=== PATIENT | female | born 1950 | race Hispanic/Latino ===

== ENCOUNTER 2017-12-04 10:43 | Inpatient (IN) | payer MEDICARE, BC ==
--- NOTE | 2017-12-04 11:38 | ED PDOC ---
Arrival/HPI - General Chief Complaint: Cough, Cold, Congestion Time Seen by Provider: 12/04/17 11:31 Historian: Patient - History of Present Illness Narrative History of Present Illness (Text): 12/04/17 11:36 A 67 year old female, whose past medical history includes COPD, asthma, HTN presents to the emergency department for further evaluation of a cough. The patient states that she has been experiencing this cough for the past 3 weeks. The patient states that sometimes she produces sputum with her cough. She notes that she has experienced voice change. The patient denies fevers, chills, headache, dizziness, abdominal pain, nausea, vomiting, diarrhea, back pain, neck pain, chest pain, shortness of breath, dyspnea on exertion, or any other complaint. Time/Duration: Other (3 weeks) Symptom Onset: Sudden Symptom Course: Unchanged Activities at Onset: Rest, Light Context: Home Past Medical History - Provider Review Nursing Documentation Reviewed: Yes - Cardiac Hx Cardiac Disorders: Yes Hx Hypertension: Yes - Pulmonary Hx Respiratory Disorders: Yes Hx Asthma: Yes Hx Chronic Obstructive Pulmonary Disease (COPD): Yes Hx Emphysema: Yes - Neurological Hx Neurological Disorder: No - HEENT Hx HEENT Disorder: No - Renal Hx Renal Disorder: No - Endocrine/Metabolic Hx Endocrine Disorders: No - Hematological/Oncological Hx Blood Disorders: Yes - Integumentary Hx Dermatological Disorder: No - Musculoskeletal/Rheumatological Hx Musculoskeletal Disorders: Yes - Gastrointestinal Hx Gastrointestinal Disorders: No - Genitourinary/Gynecological Hx Genitourinary Disorders: No - Psychiatric Hx Psychophysiologic Disorder: No Hx Substance Use: No - Surgical History Hx Hysterectomy: Yes - Suicidal Assessment Feels Threatened In Home Enviroment: No Family/Social History - Physician Review Nursing Documentation Reviewed: Yes Family/Social History: No Known Family HX Smoking Status: Former Smoker Hx Alcohol Use: No Hx Substance Use: No Allergies/Home Meds Allergies/Adverse Reactions: Allergies No Known Allergies Allergy (Verified 12/04/17 10:45) Home Medications: Home Meds Medication Instructions Recorded Confirmed Losartan/Hydrochlorothiazide 1 tab PO DAILY 01/24/12 12/04/17 [Hyzaar 25 mg-100 mg] Fluticasone/Salmeterol 250/50 1 puff IH Q12 05/06/16 12/04/17 [Advair Diskus] Tiotropium [place] [Spiriva 2.5 mcg IH DAILY 05/06/16 12/04/17 Respimat] Albuterol Sulfate [Ventolin Hfa] 2 puff NEB Q6 PRN 12/04/17 12/04/17 RX: Gabapentin [Neurontin] 600 mg PO TID 12/04/17 12/04/17 RX: Meloxicam [Mobic] 1 tab PO DAILY 12/04/17 12/04/17 oxyCODONE/Acetaminophen [Percocet 1 tab PO PRN PRN 12/04/17 12/04/17 5/325 mg Tab] Review of Systems - Physician Review All systems were reviewed & negative as marked: Yes - Review of Systems Constitutional: absent: Fevers ENT: Voice Changes Respiratory: Cough. absent: SOB Cardiovascular: absent: Chest Pain, MARTIN Gastrointestinal: absent: Abdominal Pain, Diarrhea, Nausea, Vomiting Musculoskeletal: absent: Back Pain, Neck Pain Neurological: absent: Headache, Dizziness Physical Exam - Physical Exam Narrative Physical Exam (Text): 12/04/17 11:40 Gen: VS reviewed, alert, well developed, well nourished, nontoxic, mild distress. ENT: Normal pharynx. Post nasal drip. Eye: EOMI, PERRL. Neck: No JVD, supple, no adenopathy. CV: Regular rate, regular rhythm, no rubs, no murmur, no gallops, S1, S2, pulses equal and strong. Pulm: No distress, clear to auscultation, no wheeze, no rhonchi, breath sounds equal, no rales. Abd: Soft, nontender, no guarding, no rebound, no rigidity, normal bowel sounds. Ext: No edema. Skin: Good color, no rash, no cyanosis. Psych: Responds appropriately to questions, normal affect. Neuro: Oriented x 3, CN2-12 intact grossly, motor intact, sensation intact. Vital Signs Reviewed: Yes Vital Signs Temp Pulse Resp Pulse Ox 12/04/17 10:47 98.9 F 127 H 23 94 L Temperature: Afebrile Blood Pressure: Hypotensive Pulse: Tachycardic Respiratory Rate: Normal Appearance: Positive for: Well-Appearing, Non-Toxic, Comfortable Pain Distress: None Mental Status: Positive for: Alert and Oriented X 3 Medical Decision Making ED Course and Treatment: 12/04/17 11:40 Impression: A 67 year old female presents to the emergency department with a complaint of 3 week duration cough and voice change. Plan: -- Chest X-Ray -- Labs -- Reassess and disposition Prior Visits: Notes and results from previous visits were reviewed. Progress Notes: 12/04/17 17:28 patient was seen for persistent cough, found to have a pneumonia and iv abx started in the ED. patient was incidentally found to be in atrial fibrillation which is new. heparin was ordered and initiated in the ED . patient remained stable throughout ED course and admitted to hospitalist service. - Lab Interpretations I have reviewed the lab results: Yes - RAD Interpretation Narrative RAD Interpretations (Text): 12/04/17 12:10 1110: atrial fibrillation at 134 bpm, nml qrs, nml axis, nonspecific t wave abn Radiology Orders: 12/04/17 11:32 CXR [CHEST TWO VIEWS (PA/LAT)] [RAD] Stat - Scribe Statement The provider has reviewed the documentation as recorded by the Scribe Yamilet Vera Provider Scribe Attestation: All medical record entries made by the Scribe were at my direction and personally dictated by me. I have reviewed the chart and agree that the record accurately reflects my personal performance of the history, physical exam, medical decision making, and the department course for this patient. I have also personally directed, reviewed, and agree with the discharge instructions and disposition Disposition/Present on Arrival - Present on Arrival Any Indicators Present on Arrival: No History of DVT/PE: No History of Uncontrolled Diabetes: No Urinary Catheter: No History of Decub. Ulcer: No History Surgical Site Infection Following: None - Disposition Have Diagnosis and Disposition been Completed?: Yes Diagnosis: Pneumonia Disposition Time: 13:46 Patient Problems: Current Active Problems Problem Status Onset Pneumonia Acute Condition: STABLE
[2017-12-04 12:07] LABS: BASO # 0.03 K/mm3 (0.0-2.0); BASO % 0.1 % (0.0-3.0); EOS # 0.1 (0.0-0.7); EOS % 0.3 % (1.5-5.0); GRAN # 21.16 (1.4-6.5); GRAN % 85.3 % (50.0-68.0); HEMOGLOBIN 11.3 g/dL (12.0-16.0); LYMPH # 2.4 (1.2-3.4); LYMPH % 9.6 % (22.0-35.0); MEAN CELL VOLUME 88.4 fl (80.0-105.0); MEAN CORPUSCULAR HEMOGLOBIN 29.8 pg (25.0-35.0); MEAN CORPUSCULAR HGB CONC 33.7 g/dl (31.0-37.0); MEAN PLATELET VOLUME 9.9 fl (7.0-11.0); MONO # 1.2 (0.1-0.6); MONO % 4.7 % (1.0-6.0); RBC 3.79 10^6/uL (3.5-6.1); RED CELL DISTRIBUTION WIDTH 12.8 % (11.5-14.5); WHITE BLOOD COUNT 24.8 10^3/ul (4.5-11.0)
[2017-12-04 12:12] LABS: VENOUS BLOOD GAS PO2 56 mm/Hg (30-55); VENOUS BLOOD PH 7.46 (7.32-7.43)
[2017-12-04 12:36] LABS: ALB/GLOB RATIO 0.9 (1.1-1.8); ALBUMIN 3.6 g/dL (3.0-4.8); CALCIUM 9.5 mg/dL (8.4-10.5)
--- NOTE | 2017-12-04 13:14 | RAD ---
Date of service: 12/04/2017 HISTORY: cough, pneumonia COMPARISON: 05/06/2016 TECHNIQUE: Chest PA and lateral FINDINGS: LUNGS: There is consolidation around the left hilum measuring 7.6 cm in diameter. This most likely represents pneumonia. However follow-up is recommended to rule out an underlying mass PLEURA: No significant pleural effusion identified. No pneumothorax apparent. CARDIOVASCULAR: Normal. OSSEOUS STRUCTURES: No significant abnormalities. VISUALIZED UPPER ABDOMEN: Normal. OTHER FINDINGS: None. IMPRESSION: There is consolidation around the left hilum measuring 7.6 cm in diameter. This most likely represents pneumonia. However follow-up is recommended to rule out an underlying mass
[2017-12-04] MEDS ORDERED: cefTRIAXone 1 gm 1 GM/100 ML BAG IVPB STA (13:23)
[2017-12-04] MEDS ORDERED: Azithromycin 500MG/NS 250ml 500 MG/250 ML BAG IVPB STA (13:23)
[2017-12-04] MEDS ORDERED: Sodium Chloride 0.9% 1,000 ML IV STA (13:32)
[2017-12-04] MEDS ORDERED: Heparin25000 units/250ml 1/2NS 25,000 UNITS/250 ML BAG IV PRN (13:40)
[2017-12-04] MEDS ORDERED: Oxycodone/Acetaminophen 5/325 mg Tab PO PRN (14:50)
[2017-12-04 14:56] LABS: INR 1.27; PROTHROMBIN TIME 14.6 SECONDS (9.4-12.5)
--- NOTE | 2017-12-04 14:57 | CP.PCM.HP ---
<Felecia Pedro - Last Filed: 12/04/17 14:49> History of Present Illness - History of Present Illness History of Present Illness: PGY-1 H & P for Dr. Mcneil's service CC: cough HPI: Patient is a 66 yo female with PMH of COPD, HTN, spinal stenosis, herniated disks s/p MILD procedure, bursitis in hips presents to hospital for evaluation of cough. Patient reports cough for past 3 weeks after a MILD procedure performed at [facility]. Patient reports that cough is constant in nature and is associated with clear productive phlegm at times. Patient reports decreased appetite, dizziness when rising, and overall weakness. Patient reports no fevers or chills during this period. Patient has not seen PMD in over a year. Patient denies sick contacts. Patient denies chest pain, sob, n/v, constipation or diarrhea, dysuria, and headaches. Patient's ambulation is limited due to her chronic back condition. PMH- COPD, HTN, spinal stenosis, herniated disks s/p MILD procedure, bursitis in hips PSH- Mild procedure (3 weeks ago) FH- Denies Meds- Oxycodone 2 tabs 5mg, Advair diskus, Spiriva, Losartan/HCTZ, Gabapentin, Meloxicam Alls- NKDA Social- Former smoker quit 30 years ago; Denies alcohol or drug use Code- Full PMD- [place] Present on Admission - Present on Admission Any Indicators Present on Admission: No Review of Systems - Review of Systems Review of Systems: 12 point ROS obtained and noted as in HPI Past Patient History - Past Social History Smoking Status: Former Smoker - CARDIAC Hx Cardiac Disorders: Yes Hx Hypertension: Yes - PULMONARY Hx Respiratory Disorders: Yes Hx Asthma: Yes Hx Chronic Obstructive Pulmonary Disease (COPD): Yes Hx Emphysema: Yes - NEUROLOGICAL Hx Neurological Disorder: No - HEENT Hx HEENT Problems: No - RENAL Hx Chronic Kidney Disease: No - ENDOCRINE/METABOLIC Hx Endocrine Disorders: No - HEMATOLOGICAL/ONCOLOGICAL Hx Blood Disorders: Yes - INTEGUMENTARY Hx Dermatological Problems: No - MUSCULOSKELETAL/RHEUMATOLOGICAL Hx Musculoskeletal Disorders: Yes - GASTROINTESTINAL Hx Gastrointestinal Disorders: No - GENITOURINARY/GYNECOLOGICAL Hx Genitourinary Disorders: No - PSYCHIATRIC Hx Psychophysiologic Disorder: No Hx Substance Use: No - SURGICAL HISTORY Hx Hysterectomy: Yes Meds Allergies/Adverse Reactions: Allergies Allergy/AdvReac Type Severity Reaction Status Date / Time No Known Allergies Allergy Verified 12/04/17 10:45 Physical Exam - Constitutional Appears: Non-toxic, No Acute Distress - Head Exam Head Exam: NORMAL INSPECTION, NORMOCEPHALIC - Eye Exam Eye Exam: EOMI, Normal appearance. absent: Nystagmus, Scleral icterus - ENT Exam ENT Exam: Mucous Membranes Moist - Respiratory Exam Respiratory Exam: Clear to Auscultation Bilateral, NORMAL BREATHING PATTERN. absent: Rales, Rhonchi, Wheezes - Cardiovascular Exam Cardiovascular Exam: Tachycardia, Irregular Rhythm, +S1, +S2. absent: REGULAR RHYTHM, Systolic Murmur - GI/Abdominal Exam GI & Abdominal Exam: Normal Bowel Sounds, Soft. absent: Distended, Firm, Tender ness - Extremities Exam Extremities exam: Positive for: normal inspection. Negative for: calf tenderness, pedal edema - Neurological Exam Neurological exam: Alert, Oriented x3 - Skin Skin Exam: Intact, Normal Color Results - Vital Signs Recent Vital Signs: Last Vital Signs Temp 98.1 F 12/04/17 13:32 Pulse 118 H 12/04/17 14:33 Resp 19 12/04/17 14:33 BP 100/46 L 12/04/17 14:33 Pulse Ox 96 12/04/17 14:33 - Labs Result Diagrams: 12/04/17 11:56 12/04/17 11:31 Labs: Laboratory Results - last 24 hr 12/04/17 12/04/17 12/04/17 11:31 11:56 11:56 WBC 24.8 H D RBC 3.79 Hgb 11.3 L Hct 33.5 L MCV 88.4 MCH 29.8 MCHC 33.7 RDW 12.8 Plt Count 424 MPV 9.9 Gran % 85.3 H Lymph % (Auto) 9.6 L [place] % (Auto) 4.7 Eos % (Auto) 0.3 L Baso % (Auto) 0.1 Gran # 21.16 H Lymph # (Auto) 2.4 [place] # (Auto) 1.2 H Eos # (Auto) 0.1 Baso # (Auto) 0.03 pO2 56 H VBG pH 7.46 H VBG pCO2 36.0 L VBG HCO3 25.6 VBG Total CO2 26.7 VBG O2 Sat (Calc) 91.7 H VBG Base Excess 2.0 VBG Potassium 2.9 L Glucose 151 H Lactate 2.8 H FiO2 21.0 Sodium 135 134.0 Potassium 3.0 L Chloride 97 L 99.0 Carbon Dioxide 23 Anion Gap 17 BUN 46 H Creatinine 1.9 H Est GFR ( Amer) 32 Est GFR (Non-Af Amer) 26 Random Glucose 150 H Calcium 9.5 Total Bilirubin 1.0 AST 26 ALT 20 Alkaline Phosphatase 77 NT-Pro-B Natriuret Pep 3100 H Total Protein 7.6 Albumin 3.6 Globulin 3.9 Albumin/Globulin Ratio 0.9 L Venous Blood Potassium 2.9 L Influenza Typ A,B (EIA) 12/04/17 12:35 WBC RBC Hgb Hct MCV MCH MCHC RDW Plt Count MPV Gran % Lymph % (Auto) [place] % (Auto) Eos % (Auto) Baso % (Auto) Gran # Lymph # (Auto) [place] # (Auto) Eos # (Auto) Baso # (Auto) pO2 VBG pH VBG pCO2 VBG HCO3 VBG Total CO2 VBG O2 Sat (Calc) VBG Base Excess VBG Potassium Glucose Lactate FiO2 Sodium Potassium Chloride Carbon Dioxide Anion Gap BUN Creatinine Est GFR ( Amer) Est GFR (Non-Af Amer) Random Glucose Calcium Total Bilirubin AST ALT Alkaline Phosphatase NT-Pro-B Natriuret Pep Total Protein Albumin Globulin Albumin/Globulin Ratio Venous Blood Potassium Influenza Typ A,B (EIA) Negative for flu a/b Assessment & Plan - Assessment and Plan (Free Text) Assessment: Patient is a 66 yo female with PMH of COPD, HTN, spinal stenosis, herniated disks s/p MILD procedure, bursitis in hips presents to hospital for evaluation of cough. CXR shows PNA with possible lung mass; EKG showed Afib with RVR no prior heart disease history; Treated with azith/ceft in ED; ID, pulm, Cardio consulted Plan: Sepsis Likely 2/2 to PNA ID consulted- Dr. Moreno- recs appreciated Pulm consulted- Dr. Patrick- recs appreciated 12-04-17 Cxray shows consolidation around left hilum. possible lung mass Procal pending; PNA studies pending ED gave ceft/azith; Switched to Cefepime 1g & Vanc 1g (started 12-04) Repeat Lactate pending Chest CT pending NS 1L bolus Afib w/ RVR Infection vs Heart Disease Cardio Consult- Dr. Youngblood- reccomendations appreciated Lopressor 5mg q6 PRN (HR>115) Heparin drip Echo pending; TSH pending MARLON Held home combo med Losartan/HCTZ Held home med meloxicam Repeat CBC/CMP in AM NS bolus Hx of COPD Xopenex 0.63mg po IH q4h resp Elevated BNP Pt euvolemic; No JVD noted; no pitting edema; no crackles noted Will continue to monitor Chronic back pain 2/2 Spinal stenosis and herniated discks and bursitis Gabapentin 600mg tid Oxycodone 2 tab po PRN PPx GI ppx- Protonix 40mg po DVT ppx- Heparin drip Regular Diet Medical Management discussed with Dr. Tarun Pedro PGY-1 <Gabriel Mcneil - Last Filed: 12/04/17 17:24> Results - Vital Signs Recent Vital Signs: Last Vital Signs Temp 98.1 F 12/04/17 15:29 Pulse 114 H 12/04/17 15:29 Resp 18 12/04/17 16:43 BP 105/68 12/04/17 15:29 Pulse Ox 99 12/04/17 15:29 - Labs Result Diagrams: 12/04/17 11:56 12/04/17 11:31 Labs: Laboratory Results - last 24 hr 12/04/17 12/04/17 12/04/17 11:31 11:56 11:56 WBC 24.8 H D RBC 3.79 Hgb 11.3 L Hct 33.5 L MCV 88.4 MCH 29.8 MCHC 33.7 RDW 12.8 Plt Count 424 MPV 9.9 Gran % 85.3 H Lymph % (Auto) 9.6 L [place] % (Auto) 4.7 Eos % (Auto) 0.3 L Baso % (Auto) 0.1 Gran # 21.16 H Lymph # (Auto) 2.4 [place] # (Auto) 1.2 H Eos # (Auto) 0.1 Baso # (Auto) 0.03 PT INR APTT pO2 56 H VBG pH 7.46 H VBG pCO2 36.0 L VBG HCO3 25.6 VBG Total CO2 26.7 VBG O2 Sat (Calc) 91.7 H VBG Base Excess 2.0 VBG Potassium 2.9 L Glucose 151 H Lactate 2.8 H FiO2 21.0 Sodium 135 134.0 Potassium 3.0 L Chloride 97 L 99.0 Carbon Dioxide 23 Anion Gap 17 BUN 46 H Creatinine 1.9 H Est GFR ( Amer) 32 Est GFR (Non-Af Amer) 26 Random Glucose 150 H Lactic Acid Calcium 9.5 Total Bilirubin 1.0 AST 26 ALT 20 Alkaline Phosphatase 77 NT-Pro-B Natriuret Pep 3100 H Total Protein 7.6 Albumin 3.6 Globulin 3.9 Albumin/Globulin Ratio 0.9 L TSH 3rd Generation Venous Blood Potassium 2.9 L Influenza Typ A,B (EIA) 12/04/17 12/04/17 12/04/17 12:35 14:43 15:00 WBC RBC Hgb Hct MCV MCH MCHC RDW Plt Count MPV Gran % Lymph % (Auto) [place] % (Auto) Eos % (Auto) Baso % (Auto) Gran # Lymph # (Auto) [place] # (Auto) Eos # (Auto) Baso # (Auto) PT 14.6 H INR 1.27 APTT 27.0 pO2 VBG pH VBG pCO2 VBG HCO3 VBG Total CO2 VBG O2 Sat (Calc) VBG Base Excess VBG Potassium Glucose Lactate FiO2 Sodium Potassium Chloride Carbon Dioxide Anion Gap BUN Creatinine Est GFR ( Amer) Est GFR (Non-Af Amer) Random Glucose Lactic Acid Calcium Total Bilirubin AST ALT Alkaline Phosphatase NT-Pro-B Natriuret Pep Total Protein Albumin Globulin Albumin/Globulin Ratio TSH 3rd Generation 1.10 Venous Blood Potassium Influenza Typ A,B (EIA) Negative for flu a/b 12/04/17 12/04/17 15:53 15:53 WBC RBC Hgb Hct MCV MCH MCHC RDW Plt Count MPV Gran % Lymph % (Auto) [place] % (Auto) Eos % (Auto) Baso % (Auto) Gran # Lymph # (Auto) [place] # (Auto) Eos # (Auto) Baso # (Auto) PT INR APTT pO2 43 VBG pH 7.41 VBG pCO2 43.0 VBG HCO3 27.3 VBG Total CO2 28.6 H VBG O2 Sat (Calc) 79.5 H VBG Base Excess 2.2 H VBG Potassium 2.8 L Glucose 158 H Lactate 1.4 FiO2 21.0 Sodium 135.0 Potassium Chloride 102.0 Carbon Dioxide Anion Gap BUN Creatinine Est GFR ( Amer) Est GFR (Non-Af Amer) Random Glucose Lactic Acid 1.1 Calcium Total Bilirubin AST ALT Alkaline Phosphatase NT-Pro-B Natriuret Pep Total Protein Albumin Globulin Albumin/Globulin Ratio TSH 3rd Generation Venous Blood Potassium 2.8 L Influenza Typ A,B (EIA) Attending/Attestation - Attestation I have personally seen and examined this patient.: Yes I have fully participated in the care of the patient.: Yes I have reviewed all pertinent clinical information: Yes Notes (Text): 12/04/17 17:19 Medical record note made by the resident after discussion with my direction and input after the patient was personally seen and examined by me. I have reviewed the chart and agree that the record accurately reflects by personal performance of the history, physical exam, data review, and medical decision-making, in the course for the patient. I have also personally directed the plan of care. 87 yrs old female with PMH of chronic Back pain, Obesity,COPD,HTN is admitted with sepsis due to Left lung Pneumonia, has POSSIBLE underlying lung mass , new onset AF with RVR, and MARLON creatinin increased to 1.9 from 1.0, Sepsis due to Pneumonia.Agreed swith IV Vancomycin and Cefepime.Lactic acid is high , patient is getting fluid bolus, we will follow up lactic acid level. We will also get CT chest for further evaluation. AF with RVT, HR is around 115, will start PRN Metoprolol, continue IV heparin for AF .We will also get 2D Echo and cardiology consult. BNP is high but patient is not CHF clinically, we will monitor, we will get 2D Echo. Management plan was discussed in detail with patient. Education was provided.
[2017-12-04] MEDS ORDERED: Vancomycin 1gm in NS 250ml 1 GM/250 ML BAG IVPB SCH (15:00)
[2017-12-04] MEDS: Heparin25000 units/250ml 1/2NS 25,000 UNITS/250 ML BAG IV PRN (15:51)
[2017-12-04 16:10] LABS: VENOUS BLOOD GAS BASE EXCESS 2.2 mmol/L (0.0-2.0); VENOUS BLOOD GAS PO2 43 mm/Hg (30-55); VENOUS BLOOD PH 7.41 (7.32-7.43)
--- NOTE | 2017-12-04 16:21 | CARD ---
APPROVED REPORT Date of service: 12/04/2017 EKG Measurement Heart [id number] <Conclusion> Atrial fibrillation with rapid ventricular response Nonspecific ST and T wave abnormality, probably digitalis effect Abnormal ECG
[2017-12-04 16:46] VITALS: BMI 42.9
[2017-12-04] MEDS: Pantoprazole 40 mg EC Tab PO SCH (17:57)
[2017-12-04] MEDS ORDERED: Potassium Chloride 20 mEq ER Tab PO STA (19:31)
[2017-12-04] MEDS: Ipratropium 0.02% Inhal Soln (0.5 mg/2.5 ml) UD IH SCH (19:42)
[2017-12-04] MEDS: guaiFENesin 100 mg/5 ml Syrup UD PO PRN (20:51)
[2017-12-05] MEDS: Ipratropium 0.02% Inhal Soln (0.5 mg/2.5 ml) UD IH SCH ×6 (00:06→20:35)
[2017-12-05] MEDS: Cefepime 1gm in NS 100ml 1 GM/100 ML BAG IVPB SCH ×3 (01:52→15:15)
[2017-12-05] MEDS: Heparin25000 units/250ml 1/2NS 25,000 UNITS/250 ML BAG IV PRN (02:57)
[2017-12-05] MEDS: Linezolid 600 mg in D5W 300 ml 600 MG/300 ML BAG IVPB SCH ×2 (02:58→22:11)
[2017-12-05 04:29] LABS: BASO # 0.01 K/mm3 (0.0-2.0); BASO % 0.1 % (0.0-3.0); EOS # 0.1 (0.0-0.7); EOS % 0.8 % (1.5-5.0); GRAN # 12.73 (1.4-6.5); GRAN % 75.8 % (50.0-68.0); LYMPH # 3.1 (1.2-3.4); LYMPH % 18.3 % (22.0-35.0); MEAN CELL VOLUME 87.8 fl (80.0-105.0); MEAN CORPUSCULAR HEMOGLOBIN 29.7 pg (25.0-35.0); MEAN CORPUSCULAR HGB CONC 33.8 g/dl (31.0-37.0); MEAN PLATELET VOLUME 9.5 fl (7.0-11.0); MONO # 0.8 (0.1-0.6); RBC 3.37 10^6/uL (3.5-6.1); RED CELL DISTRIBUTION WIDTH 12.9 % (11.5-14.5); WHITE BLOOD COUNT 16.8 10^3/ul (4.5-11.0)
[2017-12-05] MEDS: Levalbuterol 0.63 MG/3 ML Inhal Soln UD IH PRN ×3 (04:38→15:18)
[2017-12-05 04:52] LABS: ALB/GLOB RATIO 0.9 (1.1-1.8); ALBUMIN 2.9 g/dL (3.0-4.8); CALCIUM 8.5 mg/dL (8.4-10.5)
[2017-12-05] MEDS: guaiFENesin 100 mg/5 ml Syrup UD PO PRN (05:38)
--- NOTE | 2017-12-05 09:05 | CP.PCM.PN ---
Subjective - Date & Time of Evaluation Date of Evaluation: 12/05/17 Time of Evaluation: 10:20 - Subjective Subjective: PGY-1 Medicine Progress Note for Dr. Fernandez's service Patient seen and examined at bedside. Patient offers no acute complaints except for cough at times. Patient denies fevers, chills, chest pain, sob, n/v, constipation or diarrhea, headaches. Objective - Vital Signs/Intake and Output Vital Signs (last 24 hours): Temp Pulse Resp BP Pulse Ox 98.6 F 129 H 21 99/56 L 95 12/05/17 06:00 12/05/17 06:00 12/05/17 06:00 12/05/17 06:00 12/05/17 06:00 Intake and Output: 12/05/17 12/05/17 06:59 18:59 Intake Total 1440 Balance 1440 - Medications Medications: Current Medications Gabapentin (Neurontin) 600 mg PO Q8 CAR; Protocol Last Admin: 12/05/17 05:38 Dose: 600 mg Guaifenesin (Robitussin) 100 mg PO Q4H PRN PRN Reason: cough Last Admin: 12/05/17 05:38 Dose: 100 mg Heparin Sodium/Sodium Chloride (Heparin 68478 Units/250ml 1/2 Normal Saline) 25,000 units in 250 mls @ 21.767 mls/hr IV .[id number] PRN; Protocol PRN Reason: ADJUST RATE PER PROTOCOL Last Admin: 12/05/17 02:57 Dose: 18 units/kg/hr, 21.767 mls/hr Azithromycin (Zithromax 500mg In Ns) 500 mg in 250 mls @ 167 mls/hr IVPB DAILY CAR; Protocol Linezolid (Zyvox 600mg/300ml D5w) 600 mg in 300 mls @ 200 mls/hr IVPB Q12 CAR; Protocol Stop: 12/11/17 22:46 Last Admin: 12/05/17 02:58 Dose: 200 mls/hr Cefepime HCl (Maxipime 1gm) 1 gm in 100 mls @ 100 mls/hr IVPB Q12H CAR; Protocol Ipratropium [place] (Atrovent) 0.5 mg IH [id number] CAR Last Admin: 12/05/17 08:02 Dose: 0.5 mg Levalbuterol HCl (Xopenex) 0.63 mg IH [id number] PRN PRN Reason: Shortness of Breath Last Admin: 12/05/17 08:02 Dose: 0.63 mg Metoprolol Tartrate (Lopressor) 25 mg PO 0800,1800 PRN PRN Reason: HR>115 Last Admin: 12/05/17 00:04 Dose: 25 mg Oxycodone/Acetaminophen (Percocet 5/325 Mg Tab) 2 tab PO Q6H PRN PRN Reason: Pain, Mild (1-3) Stop: 12/07/17 14:51 Pantoprazole Sodium (Protonix Ec Tab) 40 mg PO DAILY CAR Last Admin: 12/04/17 17:57 Dose: 40 mg - Labs Labs: 12/05/17 04:05 12/05/17 04:05 PT 14.6 SECONDS (9.4-12.5) H 12/04/17 14:43 INR 1.27 12/04/17 14:43 APTT 60.7 Seconds (25.1-36.5) H 12/05/17 04:05 - Additional Findings Additional findings: - Constitutional Appears: Non-toxic, No Acute Distress - Head Exam Head Exam: NORMAL INSPECTION, NORMOCEPHALIC - Eye Exam Eye Exam: EOMI, Normal appearance. absent: Nystagmus, Scleral icterus - ENT Exam ENT Exam: Mucous Membranes Moist - Respiratory Exam Respiratory Exam: Clear to Auscultation Bilateral, NORMAL BREATHING PATTERN. absent: Rales, Rhonchi, Wheezes - Cardiovascular Exam Cardiovascular Exam: Tachycardia, Irregular Rhythm, +S1, +S2. absent: REGULAR RHYTHM, Systolic Murmur - GI/Abdominal Exam GI & Abdominal Exam: Normal Bowel Sounds, Soft. absent: Distended, Firm, Tenderness - Extremities Exam Extremities exam: Positive for: normal inspection. Negative for: calf tenderness, pedal edema - Neurological Exam Neurological exam: Alert, Oriented x3 - Skin Skin Exam: Intact, Normal Color Assessment and Plan - Assessment and Plan (Free Text) Assessment: Patient is a 66 yo female with PMH of COPD, HTN, spinal stenosis, herniated disks s/p MILD procedure, bursitis in hips presents to hospital for evaluation of cough. CXR shows PNA with possible lung mass; EKG showed Afib with RVR no prior heart disease history; Treated with azith/ceft in ED; ID, pulm, Cardio consulted. Chest CT shows findings consistent with PNA Plan: Sepsis Likely 2/2 to PNA ID consulted- Dr. Moreno- recommendations as below Pulm consulted- Dr. Lucia- recommendations as below 12-04-17 Cxray shows consolidation around left hilum 12-05-[address] shows consolidation consistent with PNA Procal pending 0.37; PNA studies pending ED gave ceft/azith; Switched to Cefepime, Azithromycin, Zyvox Afib w/ RVR Infection vs Heart Disease Cardio Consult- Dr. Youngblood- reccomendations appreciated Lopressor 5mg q6 PRN (HR>115) Igor-Vasc: 3; Patient needs to be on AC for increased clot risk; Heparin drip dc'ed; Switched to Xarelto 20mg daily Echo pending TSH normal MARLON Held home combo med Losartan/HCTZ Held home med meloxicam Repeat CBC/CMP in AM Hx of COPD Xopenex 0.63mg po IH q4h resp Elevated BNP Pt euvolemic; No JVD noted; no pitting edema; no crackles noted Will continue to monitor Chronic back pain 2/2 Spinal stenosis and herniated discks and bursitis Gabapentin 600mg tid Oxycodone 2 tab po PRN PPx GI ppx- Protonix 40mg po DVT ppx- Heparin drip Regular Diet Medical Management discussed with Dr. Tarun Pedro PGY-1
--- NOTE | 2017-12-05 09:13 | CP.PCM.CON ---
<Stacey Andres - Last Filed: 12/05/17 13:14> History of Present Illness - History of Present Illness History of Present Illness: PGY-3 ID resident consult note for Dr. Mccoy Reason for consult: Pneumonia Patient is a 67 y/o with PMHx of COPD, htn, spinal stenosis s/p MILD procedure, herniated disc, bursitis of the hip, morbidly obese ( BMI 44) presenting with 3 weeks of cough. The cough is intermittently productive, pt doesn't know the color of the sputum. Pt came in because the cough was getting worst, though it was her allergies, however no improvement with her inhalers. Denies runny nose or itchy eyes. Denies fever or chills. No nausea, vomiting or diarrhea. No dysurea. Patient was noted to have sepsis with pneumonia as the possible source, thus ID was consulted for management. PMHx: COPD, htn, spinal stenosis s/p MILD procedure 3 weeks ago, herniated disc, bursitis of the hip, morbidly obese ( BMI 44) PSHx: hysterectomy 40 years ago FMHx: non contributory Social: former tobacco, quit 30 years ago, denies alcohol and illicit drug use. Allergy: NKDA Home Meds: Review of Systems - Constitutional Constitutional: absent: Chills, Fatigue, Fever, Headache, Night Sweats, Weight Loss - EENT Eyes: absent: Blurred Vision, Change in Vision Ears: absent: Disequilibrium, Dizziness Nose/Mouth/Throat: absent: Sinus Pain, Sore Throat - Cardiovascular Cardiovascular: absent: Chest Pain, Chest Pain at Rest, Dyspnea - Respiratory Respiratory: Cough, Wheezing. absent: Dyspnea, Chest Congestion, Excessive Mucous Production, Pain with Coughing - Gastrointestinal Gastrointestinal: absent: Abdominal Pain, Nausea, Vomiting - Genitourinary Genitourinary: absent: Dysuria - Musculoskeletal Musculoskeletal: absent: Arthralgias - Integumentary Integumentary: absent: Rash - Neurological Neurological: absent: Dizziness Past Patient History - Infectious Disease Hx of Infectious Diseases: None - Past Social History Smoking Status: Former Smoker Alcohol: None Drugs: Denies Home Situation {Lives}: With Family - CARDIAC Hx Cardiac Disorders: Yes Hx Hypertension: Yes - PULMONARY Hx Respiratory Disorders: Yes Hx Asthma: Yes Hx Chronic Obstructive Pulmonary Disease (COPD): Yes Hx Emphysema: Yes - NEUROLOGICAL Hx Neurological Disorder: No - HEENT Hx HEENT Problems: No - RENAL Hx Chronic Kidney Disease: No - ENDOCRINE/METABOLIC Hx Endocrine Disorders: No - HEMATOLOGICAL/ONCOLOGICAL Hx Blood Disorders: Yes - INTEGUMENTARY Hx Dermatological Problems: No - MUSCULOSKELETAL/RHEUMATOLOGICAL Hx Musculoskeletal Disorders: Yes - GASTROINTESTINAL Hx Gastrointestinal Disorders: No - GENITOURINARY/GYNECOLOGICAL Hx Genitourinary Disorders: No - PSYCHIATRIC Hx Psychophysiologic Disorder: No Hx Substance Use: No - SURGICAL HISTORY Hx Hysterectomy: Yes Meds Allergies/Adverse Reactions: Allergies Allergy/AdvReac Type Severity Reaction Status Date / Time No Known Allergies Allergy Verified 12/04/17 10:45 - Medications Medications: Current Medications Gabapentin (Neurontin) 600 mg PO Q8 CAR; Protocol Last Admin: 12/05/17 05:38 Dose: 600 mg Guaifenesin (Robitussin) 100 mg PO Q4H PRN PRN Reason: cough Last Admin: 12/05/17 05:38 Dose: 100 mg Heparin Sodium/Sodium Chloride (Heparin 28740 Units/250ml 1/2 Normal Saline) 25,000 units in 250 mls @ 21.767 mls/hr IV .[id number] PRN; Protocol PRN Reason: ADJUST RATE PER PROTOCOL Last Admin: 12/05/17 02:57 Dose: 18 units/kg/hr, 21.767 mls/hr Azithromycin (Zithromax 500mg In Ns) 500 mg in 250 mls @ 167 mls/hr IVPB DAILY [facility]; Protocol Linezolid (Zyvox 600mg/300ml D5w) 600 mg in 300 mls @ 200 mls/hr IVPB Q12 CAR; Protocol Stop: 12/11/17 22:46 Last Admin: 12/05/17 02:58 Dose: 200 mls/hr Cefepime HCl (Maxipime 1gm) 1 gm in 100 mls @ 100 mls/hr IVPB Q12H CAR; Protocol Ipratropium [place] (Atrovent) 0.5 mg IH [id number] CAR Last Admin: 12/05/17 08:02 Dose: 0.5 mg Levalbuterol HCl (Xopenex) 0.63 mg IH [id number] PRN PRN Reason: Shortness of Breath Last Admin: 12/05/17 08:02 Dose: 0.63 mg Metoprolol Tartrate (Lopressor) 25 mg PO 0800,1800 PRN PRN Reason: HR>115 Last Admin: 12/05/17 00:04 Dose: 25 mg Oxycodone/Acetaminophen (Percocet 5/325 Mg Tab) 2 tab PO Q6H PRN PRN Reason: Pain, Mild (1-3) Stop: 12/07/17 14:51 Pantoprazole Sodium (Protonix Ec Tab) 40 mg PO DAILY CAR Last Admin: 12/04/17 17:57 Dose: 40 mg Physical Exam - Constitutional Appears: No Acute Distress - Head Exam Head Exam: ATRAUMATIC, NORMAL INSPECTION, NORMOCEPHALIC - Eye Exam Eye Exam: Normal appearance - ENT Exam ENT Exam: Mucous Membranes Moist - Neck Exam Neck exam: Positive for: Normal Inspection. Negative for: Lymphadenopathy, Meningismus, Tenderness - Respiratory Exam Respiratory Exam: Wheezes (left upper lobe). absent: Rales, Rhonchi, Respiratory Distress, Stridor - Cardiovascular Exam Cardiovascular Exam: Irregular Rhythm, RRR, +S1, +S2 - GI/Abdominal Exam GI & Abdominal Exam: Normal Bowel Sounds, Soft. absent: Distended, Firm, Guarding, Hernia, Rigid, Tenderness Additional comments: obese abdomen - Extremities Exam Extremities exam: Positive for: normal inspection - Neurological Exam Neurological exam: Alert, Oriented x3 - Psychiatric Exam Psychiatric exam: Normal Affect, Normal Mood - Skin Skin Exam: Dry, Intact, Warm Results - Vital Signs Recent Vital Signs: Last Vital Signs Temp 98.6 F 12/05/17 06:00 Pulse 129 H 12/05/17 06:00 Resp 21 12/05/17 06:00 BP 99/56 L 12/05/17 06:00 Pulse Ox 95 12/05/17 06:00 - Labs Result Diagrams: 12/05/17 04:05 12/05/17 04:05 Labs: Laboratory Results - last 24 hr 12/04/17 12/04/17 12/04/17 11:31 11:56 11:56 WBC 24.8 H D RBC 3.79 Hgb 11.3 L Hct 33.5 L MCV 88.4 MCH 29.8 MCHC 33.7 RDW 12.8 Plt Count 424 MPV 9.9 Gran % 85.3 H Lymph % (Auto) 9.6 L Avery % (Auto) 4.7 Eos % (Auto) 0.3 L Baso % (Auto) 0.1 Gran # 21.16 H Lymph # (Auto) 2.4 Avery # (Auto) 1.2 H Eos # (Auto) 0.1 Baso # (Auto) 0.03 PT INR APTT pO2 56 H VBG pH 7.46 H VBG pCO2 36.0 L VBG HCO3 25.6 VBG Total CO2 26.7 VBG O2 Sat (Calc) 91.7 H VBG Base Excess 2.0 VBG Potassium 2.9 L Glucose 151 H Lactate 2.8 H FiO2 21.0 Sodium 135 134.0 Potassium 3.0 L Chloride 97 L 99.0 Carbon Dioxide 23 Anion Gap 17 BUN 46 H Creatinine 1.9 H Est GFR ( Amer) 32 Est GFR (Non-Af Amer) 26 Random Glucose 150 H Lactic Acid Calcium 9.5 Total Bilirubin 1.0 AST 26 ALT 20 Alkaline Phosphatase 77 NT-Pro-B Natriuret Pep 3100 H Total Protein 7.6 Albumin 3.6 Globulin 3.9 Albumin/Globulin Ratio 0.9 L Procalcitonin TSH 3rd Generation Venous Blood Potassium 2.9 L Influenza Typ A,B (EIA) 12/04/17 12/04/17 12/04/17 12:35 14:43 15:00 WBC RBC Hgb Hct MCV MCH MCHC RDW Plt Count MPV Gran % Lymph % (Auto) Avery % (Auto) Eos % (Auto) Baso % (Auto) Gran # Lymph # (Auto) Avery # (Auto) Eos # (Auto) Baso # (Auto) PT 14.6 H INR 1.27 APTT 27.0 pO2 VBG pH VBG pCO2 VBG HCO3 VBG Total CO2 VBG O2 Sat (Calc) VBG Base Excess VBG Potassium Glucose Lactate FiO2 Sodium Potassium Chloride Carbon Dioxide Anion Gap BUN Creatinine Est GFR ( Amer) Est GFR (Non-Af Amer) Random Glucose Lactic Acid Calcium Total Bilirubin AST ALT Alkaline Phosphatase NT-Pro-B Natriuret Pep Total Protein Albumin Globulin Albumin/Globulin Ratio Procalcitonin TSH 3rd Generation 1.10 Venous Blood Potassium Influenza Typ A,B (EIA) Negative for flu a/b 12/04/17 12/04/17 12/04/17 15:53 15:53 17:25 WBC RBC Hgb Hct MCV MCH MCHC RDW Plt Count MPV Gran % Lymph % (Auto) Avery % (Auto) Eos % (Auto) Baso % (Auto) Gran # Lymph # (Auto) Avery # (Auto) Eos # (Auto) Baso # (Auto) PT INR APTT pO2 43 VBG pH 7.41 VBG pCO2 43.0 VBG HCO3 27.3 VBG Total CO2 28.6 H VBG O2 Sat (Calc) 79.5 H VBG Base Excess 2.2 H VBG Potassium 2.8 L Glucose 158 H Lactate 1.4 FiO2 21.0 Sodium 135.0 Potassium Chloride 102.0 Carbon Dioxide Anion Gap BUN Creatinine Est GFR ( Amer) Est GFR (Non-Af Amer) Random Glucose Lactic Acid 1.1 Calcium Total Bilirubin AST ALT Alkaline Phosphatase NT-Pro-B Natriuret Pep Total Protein Albumin Globulin Albumin/Globulin Ratio Procalcitonin 0.37 TSH 3rd Generation Venous Blood Potassium 2.8 L Influenza Typ A,B (EIA) 12/04/17 12/05/17 12/05/17 22:30 04:05 04:05 WBC 16.8 H D RBC 3.37 L Hgb 10.0 L Hct 29.6 L MCV 87.8 MCH 29.7 MCHC 33.8 RDW 12.9 Plt Count 292 MPV 9.5 Gran % 75.8 H Lymph % (Auto) 18.3 L Avery % (Auto) 5.0 Eos % (Auto) 0.8 L Baso % (Auto) 0.1 Gran # 12.73 H Lymph # (Auto) 3.1 Avery # (Auto) 0.8 H Eos # (Auto) 0.1 Baso # (Auto) 0.01 PT INR APTT 60.2 H pO2 VBG pH VBG pCO2 VBG HCO3 VBG Total CO2 VBG O2 Sat (Calc) VBG Base Excess VBG Potassium Glucose Lactate FiO2 Sodium 133 Potassium 3.8 Chloride 100 Carbon Dioxide 25 Anion Gap 11 BUN 51 H Creatinine 1.8 H Est GFR ( Amer) 34 Est GFR (Non-Af Amer) 28 Random Glucose 158 H Lactic Acid Calcium 8.5 Total Bilirubin 0.6 AST 39 H D ALT 33 Alkaline Phosphatase 86 NT-Pro-B Natriuret Pep Total Protein 6.1 Albumin 2.9 L Globulin 3.1 Albumin/Globulin Ratio 0.9 L Procalcitonin TSH 3rd Generation Venous Blood Potassium Influenza Typ A,B (EIA) 12/05/17 04:05 WBC RBC Hgb Hct MCV MCH MCHC RDW Plt Count MPV Gran % Lymph % (Auto) Avery % (Auto) Eos % (Auto) Baso % (Auto) Gran # Lymph # (Auto) Avery # (Auto) Eos # (Auto) Baso # (Auto) PT INR APTT 60.7 H pO2 VBG pH VBG pCO2 VBG HCO3 VBG Total CO2 VBG O2 Sat (Calc) VBG Base Excess VBG Potassium Glucose Lactate FiO2 Sodium Potassium Chloride Carbon Dioxide Anion Gap BUN Creatinine Est GFR ( Amer) Est GFR (Non-Af Amer) Random Glucose Lactic Acid Calcium Total Bilirubin AST ALT Alkaline Phosphatase NT-Pro-B Natriuret Pep Total Protein Albumin Globulin Albumin/Globulin Ratio Procalcitonin TSH 3rd Generation Venous Blood Potassium Influenza Typ A,B (EIA) Assessment & Plan - Assessment and Plan (Free Text) Assessment: Patient is a 67 y/o admitted with Sepsis with HAP as the possible source CT chest with dense consolidation in the anterior left upper lobe consistent with pneumonia and area of consolidation in the left lung base. Likely aspiration pna, less likely TB due to location RVR afib R/o COPD exacerbation versus CHF exacerbation MARLON COPD, htn spinal stenosis s/p MILD procedure, herniated disc, bursitis of the hip, morbidly obese (BMI 44) Hyperglycemia Plan: Afebrile, with tachycardia and leukocytosis on presentation, lactic acid was 2.8, chest x-ray with consolidation around hilum, Procal of 0.37. CT chest finding as stated above. Influenza negative, strep pneumonia, urine legionella o rdered. Patient started on cefepime, Zithromax and zyvox to cover HAP, will consider deescalating the antibiotics pending cultures. Pulm consulted to evaluate the dense consolidations. On heparin drip for RVR afib. Echo pending Will add hemoglobin A1C for hyperglycemia. Continue with medical management as per primary and batch unit treater. Patient seen, examined and case discussed with Dr. Mccoy. - Date & Time Date: 12/05/17 Time: 13:10 <Marcell Mccoy - Last Filed: 12/05/17 22:13> Meds - Medications Medications: Current Medications Gabapentin (Neurontin) 600 mg PO Q8 CAR; Protocol Last Admin: 12/05/17 15:15 Dose: 600 mg Guaifenesin (Robitussin) 100 mg PO Q4H PRN PRN Reason: cough Last Admin: 12/05/17 05:38 Dose: 100 mg Azithromycin (Zithromax 500mg In Ns) 500 mg in 250 mls @ 167 mls/hr IVPB DAILY CAR; Protocol Last Admin: 12/05/17 10:08 Dose: 167 mls/hr Linezolid (Zyvox 600mg/300ml D5w) 600 mg in 300 mls @ 200 mls/hr IVPB Q12 CAR; Protocol Stop: 12/11/17 22:46 Last Admin: 12/05/17 02:58 Dose: 200 mls/hr Cefepime HCl (Maxipime 1gm) 1 gm in 100 mls @ 100 mls/hr IVPB Q12H CAR; Protocol Last Admin: 12/05/17 15:15 Dose: 100 mls/hr Ipratropium [place] (Atrovent) 0.5 mg IH [id number] CAR Last Admin: 12/05/17 20:35 Dose: 0.5 mg Levalbuterol HCl (Xopenex) 0.63 mg IH [id number] PRN PRN Reason: Shortness of Breath Last Admin: 12/05/17 15:18 Dose: 0.63 mg Metoprolol Tartrate (Lopressor) 25 mg PO 0800,1800 PRN PRN Reason: HR>115 Last Admin: 12/05/17 00:04 Dose: 25 mg Oxycodone/Acetaminophen (Percocet 5/325 Mg Tab) 2 tab PO Q6H PRN PRN Reason: Pain, Mild (1-3) Stop: 12/07/17 14:51 Pantoprazole Sodium (Protonix Ec Tab) 40 mg PO DAILY CAR Last Admin: 12/05/17 10:08 Dose: 40 mg Rivaroxaban (Xarelto) 15 mg PO DAILY [facility]; Protocol Results - Vital Signs Recent Vital Signs: Last Vital Signs Temp 98 F 12/05/17 17:44 Pulse 98 H 12/05/17 22:00 Resp 19 12/05/17 17:44 BP 86/48 L 12/05/17 17:44 Pulse Ox 95 12/05/17 06:00 - Labs Result Diagrams: 12/05/17 04:05 12/05/17 04:05 Labs: Laboratory Results - last 24 hr 12/04/17 12/05/17 12/05/17 22:30 04:05 04:05 WBC 16.8 H D RBC 3.37 L Hgb 10.0 L Hct 29.6 L MCV 87.8 MCH 29.7 MCHC 33.8 RDW 12.9 Plt Count 292 MPV 9.5 Gran % 75.8 H Lymph % (Auto) 18.3 L Avery % (Auto) 5.0 Eos % (Auto) 0.8 L Baso % (Auto) 0.1 Gran # 12.73 H Lymph # (Auto) 3.1 Avery # (Auto) 0.8 H Eos # (Auto) 0.1 Baso # (Auto) 0.01 APTT 60.2 H Sodium 133 Potassium 3.8 Chloride 100 Carbon Dioxide 25 Anion Gap 11 BUN 51 H Creatinine 1.8 H Est GFR ( Amer) 34 Est GFR (Non-Af Amer) 28 Random Glucose 158 H Hemoglobin A1c Calcium 8.5 Total Bilirubin 0.6 AST 39 H D ALT 33 Alkaline Phosphatase 86 Troponin I Total Protein 6.1 Albumin 2.9 L Globulin 3.1 Albumin/Globulin Ratio 0.9 L 12/05/17 12/05/17 12/05/17 04:05 05:00 10:00 WBC RBC Hgb Hct MCV MCH MCHC RDW Plt Count MPV Gran % Lymph % (Auto) Avery % (Auto) Eos % (Auto) Baso % (Auto) Gran # Lymph # (Auto) Avery # (Auto) Eos # (Auto) Baso # (Auto) APTT 60.7 H Sodium Potassium Chloride Carbon Dioxide Anion Gap BUN Creatinine Est GFR ( Amer) Est GFR (Non-Af Amer) Random Glucose Hemoglobin A1c 6.2 Calcium Total Bilirubin AST ALT Alkaline Phosphatase Troponin I 0.05 Total Protein Albumin Globulin Albumin/Globulin Ratio Assessment & Plan - Assessment and Plan (Free Text) Plan: Infectious Diseases Attending Physician Attestation Patient seen and examined, discussed with site medical director. I have the pertinent clinical findings, history of present illness, medical histories, physical exam and pertinent labs and imaging. I agree with the above findings, assessment and plan. In addition, we have started the patient on Zyvox, Cefepime and Zithromax for probable sepsis due to HAP. Follow up blood cx, sputum cx, PCT, urine Legionella Ag and will monitor clinically.
--- NOTE | 2017-12-05 09:52 | CON ---
DATE: 12/05/2017 INDICATIONS: Shortness of breath, cough, pneumonia, rapid AFib. HISTORY OF PRESENT ILLNESS: This is a 67-year-old woman admitted to [facility] yesterday when she complained of increasing cough for several weeks with shortness of breath, sputum production. She was seen in the Emergency Room and found to have atrial fibrillation with rapid ventricular response. Her chest x-ray showed an infiltrate in the midlung on the left. She was admitted to telemetry. This morning, she feels better. There is no shortness of breath at rest. There is no chest pain, orthopnea, PND, syncope, presyncope, lightheadedness, dizziness, vertigo, edema, or claudication. No fever, rigor, sweats, hemoptysis. No abdominal pain, nausea, vomiting, diarrhea, constipation, or melena. PAST MEDICAL HISTORY: Notable for COPD, hypertension, spinal stenosis, herniated disks with surgery. She is a former remote smoker. Her creatinine is elevated at 1.8. I am not sure if this is chronic. She is anemic. She has had back surgery. There is a diagnosis of bursitis of the hips. MEDICATIONS: At the time of admission, her medications included oxycodone, Advair, Spiriva, losartan HCT, gabapentin, meloxicam. ALLERGIES: THERE ARE NO MEDICATION ALLERGIES. SOCIAL HISTORY: She lives at home. She is a remote smoker who quit 30 years ago. She does not drink alcohol significantly. She is ambulatory but limited. FAMILY HISTORY: Noncontributory. REVIEW OF SYSTEMS: A 10-point review of systems otherwise unremarkable except as noted above. PHYSICAL EXAMINATION: GENERAL: She is a well-developed woman, in no acute distress, lying in bed on telemetry. VITAL SIGNS: She is in atrial fib at 107-129 beats per minute. She is afebrile. Blood pressure 115/62, respirations 19-20, O2 sat 95%-96% on nasal cannula. HEENT: Reveals no neck vein distention, thyromegaly, carotid bruits. Mucous membranes moist. Conjunctiva pink. NECK: Supple. LUNGS: Lung beavers, few rhonchi on the left side. No rales, no wheezing. HEART: Revealed an irregular rhythm, which was somewhat rapid. I did not appreciate murmur, gallop, rub, or click. PMI not palpable. ABDOMEN: Obese, soft, benign. Bowel sounds present. No mass, organomegaly, tenderness, rebound, guarding, CVA tenderness, palpable abdominal aortic aneurysm. EXTREMITIES: Revealed no cyanosis, clubbing, or edema. NEUROLOGIC: She is awake, alert, and oriented. SKIN: Warm and dry. No rash or cellulitis. LABORATORY DATA AND IMAGING: The chest x-ray reveals consolidation around the left hilum, probably pneumonia, etc. EKG demonstrated atrial fib with rapid ventricular response, ST-T wave changes. Electrolytes initially notable for potassium of 3, today 3.8; BUN 46; creatinine 1.9, today 1.8. LFTs mildly abnormal. BNP 3100. TSH 1.1. Procalcitonin 0.37. PT/INR, PTT unremarkable. Repeat PTT is therapeutic on heparin. Blood gases are noted. White count initially 24,800, repeat 16,800, hemoglobin 10, hematocrit 29.6, platelet count normal. IMPRESSION: Monica Perales is a 67-year-old woman, former smoker with chronic obstructive pulmonary disease who presents with several weeks of increasing shortness of breath and cough, found to have pneumonia apparent on the chest x-ray with atrial fibrillation with rapid ventricular response, which is new, also chronic kidney disease and anemia are noted with leukocytosis and hypokalemia initially. At this time, she is on telemetry. She is getting IV heparin and metoprolol p.o. for rate control. A CT scan of the chest is ordered. Blood cultures are ordered. She is getting antibiotics. An echocardiogram is ordered. She could be out of bed to a chair. I will order stool for occult blood. We will monitor I's and O's and daily lab work. We will titrate the medications to achieve rate control. We will discuss anticoagulation. In the meantime, she is on IV heparin. Once stabilized, a nuclear stress test should be considered, probably on an outpatient basis. I will follow along with you. I will order troponins for completeness. I will make additional recommendations based on her clinical course. Ovidio Herring MD [facility]
[2017-12-05] MEDS: Pantoprazole 40 mg EC Tab PO SCH (10:08)
[2017-12-05] MEDS: Azithromycin 500MG/NS 250ml 500 MG/250 ML BAG IVPB SCH (10:08)
--- NOTE | 2017-12-05 11:05 | CT ---
Date of service: 12/05/2017 PROCEDURE: CT Chest without contrast HISTORY: PNA and possible lung mass COMPARISON: None available. TECHNIQUE: Contiguous axial images were obtained through the chest without intravenous contrast enhancement. Sagittal and coronal reconstructions were performed. Radiation dose (DLP): 1158 mGy-cm. This CT exam was performed using one or more of the following dose reduction techniques: Automated exposure control, adjustment of the mA and/or kV according to patient size, and/or use of iterative reconstruction technique. FINDINGS: LUNGS: There is dense consolidation in the anterior left upper lobe consistent with pneumonia. There is also volume loss. There is a 2nd area of consolidation at the left lung base. MEDIASTINUM: Unremarkable thoracic aorta. No aneurysm. Normal sized heart. Main pulmonary artery unremarkable. No vascular congestion. No lymphadenopathy. PLEURA: No pleural fluid. No pneumothorax. BONES: No fracture. No destructive lesion. UPPER ABDOMEN: Small hiatal hernia OTHER FINDINGS: None. IMPRESSION: There is dense consolidation in the anterior left upper lobe consistent with pneumonia. There is also volume loss. There is a 2nd area of consolidation at the left lung base.
[2017-12-05] MEDS ORDERED: Metoprolol 1 mg/ml Inj IVP ONE (14:43)
[2017-12-06] MEDS: Cefepime 1gm in NS 100ml 1 GM/100 ML BAG IVPB SCH ×2 (01:00→16:33)
[2017-12-06] MEDS: Ipratropium 0.02% Inhal Soln (0.5 mg/2.5 ml) UD IH SCH ×6 (01:58→20:15)
[2017-12-06 04:14] LABS: BASO # 0.01 K/mm3 (0.0-2.0); BASO % 0.1 % (0.0-3.0); EOS # 0.2 (0.0-0.7); EOS % 1.2 % (1.5-5.0); GRAN # 9.59 (1.4-6.5); GRAN % 77.6 % (50.0-68.0); HEMOGLOBIN 9.4 g/dL (12.0-16.0); LYMPH # 1.9 (1.2-3.4); LYMPH % 15.5 % (22.0-35.0); MEAN CELL VOLUME 87.9 fl (80.0-105.0); MEAN CORPUSCULAR HEMOGLOBIN 29.8 pg (25.0-35.0); MEAN CORPUSCULAR HGB CONC 33.9 g/dl (31.0-37.0); MEAN PLATELET VOLUME 9.2 fl (7.0-11.0); MONO # 0.7 (0.1-0.6); MONO % 5.6 % (1.0-6.0); RBC 3.15 10^6/uL (3.5-6.1); RED CELL DISTRIBUTION WIDTH 12.9 % (11.5-14.5); WHITE BLOOD COUNT 12.4 10^3/ul (4.5-11.0)
[2017-12-06 04:36] LABS: TROPONIN I 0.02 ng/mL
[2017-12-06 04:51] LABS: ALBUMIN 3.1 g/dL (3.0-4.8); CALCIUM 8.9 mg/dL (8.4-10.5)
[2017-12-06 07:51] LABS: PH,URINE 5.5 (4.7-8.0); URINE BILIRUBIN NEGATIVE (NEGATIVE); URINE BLOOD NEGATIVE (NEGATIVE); URINE GLUCOSE (UA) NEGATIVE (NEGATIVE); URINE LEUKOCYTE ESTERASE TRACE Leu/uL (NEGATIVE); URINE PROTEIN NEGATIVE mg/dL (<30 mg/dL); URINE UROBILINOGEN 0.2 E.U./dL (<1 E.U./dL)
[2017-12-06] MEDS: Budesonide 0.5 mg/2 ml Inhal Susp UD IH SCH ×2 (07:55→20:15)
[2017-12-06 08:07] LABS: URINE APPEARANCE CLEAR (CLEAR); URINE COLOR YELLOW (YELLOW)
[2017-12-06 08:10] LABS: URINE BACTERIA MOD (NEG); URINE RBC 0 - 2 /hpf (0-2)
--- NOTE | 2017-12-06 08:25 | CP.PCM.PN ---
Subjective - Date & Time of Evaluation Date of Evaluation: 12/06/17 Time of Evaluation: 07:00 - Subjective Subjective: Stable on 2R. She feels better. Still some cough. V/S noted. RSR this AM. 108/52 currently. Low BPs at times. PE: Lungs: rhonchi Cor.: S1S2 Abd.: soft Ext.: no edema Neuro.: alert I/O= 1500/1950 Labs: 12,400, PTT 24.9, Cr.+ 1.5, trop = 0.02 BC X2 NG at 24 hrs. Echo done: Nl LV. See report. Objective - Vital Signs/Intake and Output Vital Signs (last 24 hours): Temp Pulse Resp BP Pulse Ox 97.6 F 98 H 18 108/52 L 97 12/06/17 05:53 12/06/17 05:53 12/06/17 05:53 12/06/17 05:53 12/06/17 05:53 Intake and Output: 12/06/17 12/06/17 06:59 18:59 Intake Total 840 Output Total 800 Balance 40 - Medications Medications: Current Medications Budesonide (Pulmicort Respules) 0.5 mg IH [id number] CAR Last Admin: 12/06/17 07:55 Dose: 0.5 mg Gabapentin (Neurontin) 600 mg PO Q8 CAR; Protocol Last Admin: 12/06/17 05:05 Dose: 600 mg Guaifenesin (Robitussin) 100 mg PO Q4H PRN PRN Reason: cough Last Admin: 12/05/17 05:38 Dose: 100 mg Azithromycin (Zithromax 500mg In Ns) 500 mg in 250 mls @ 167 mls/hr IVPB DAILY [facility]; Protocol Last Admin: 12/05/17 10:08 Dose: 167 mls/hr Linezolid (Zyvox 600mg/300ml D5w) 600 mg in 300 mls @ 200 mls/hr IVPB Q12 [facility]; Protocol Stop: 12/11/17 22:46 Last Admin: 12/05/17 22:11 Dose: 200 mls/hr Cefepime HCl (Maxipime 1gm) 1 gm in 100 mls @ 100 mls/hr IVPB Q12H [facility]; Protocol Last Admin: 12/06/17 01:00 Dose: 100 mls/hr Ipratropium [place] (Atrovent) 0.5 mg IH [id number] CAR Last Admin: 12/06/17 07:55 Dose: 0.5 mg Levalbuterol HCl (Xopenex) 0.63 mg IH [id number] PRN PRN Reason: Shortness of Breath Last Admin: 12/05/17 15:18 Dose: 0.63 mg Metoprolol Tartrate (Lopressor) 25 mg PO 0800,1800 PRN PRN Reason: HR>115 Last Admin: 12/05/17 00:04 Dose: 25 mg Oxycodone/Acetaminophen (Percocet 5/325 Mg Tab) 2 tab PO Q6H PRN PRN Reason: Pain, Mild (1-3) Stop: 12/07/17 14:51 Pantoprazole Sodium (Protonix Ec Tab) 40 mg PO DAILY [facility] Last Admin: 12/05/17 10:08 Dose: 40 mg Rivaroxaban (Xarelto) 15 mg PO DAILY [facility]; Protocol - Labs Labs: 12/06/17 04:07 12/06/17 04:07 PT 14.6 SECONDS (9.4-12.5) H 12/04/17 14:43 INR 1.27 12/04/17 14:43 APTT 24.9 Seconds (25.1-36.5) L 12/06/17 04:07 Assessment and Plan - Assessment and Plan (Free Text) Assessment: SOB, Cough, Pneumonia PAF with RVR, CHADs = 3 COPD HBP Acute renal insufficiency Anemia Obesity Spinal stenosis with H/O back Surgery and chronic pain. Former Smoker Plan: Metoprolol Xarelto AB OOB as angelo. Out-pt nuclear stress test to be arranged As per ID, Pulm., Medical Team
--- NOTE | 2017-12-06 08:53 | CP.PCM.PN ---
Subjective - Date & Time of Evaluation Date of Evaluation: 12/06/17 Time of Evaluation: 10:10 - Subjective Subjective: PGY-1 Medicine Progress Note for Dr. Sims's service Patient seen and examined at bedside. Patient reports ongoing cough, productive at times, and raspy voice 2/2 to cough. Patient denies fevers, chills, chest pain, sob, n/v, constipation or diarrhea, dysuria. Objective - Vital Signs/Intake and Output Vital Signs (last 24 hours): Temp Pulse Resp BP Pulse Ox 97.6 F 98 H 18 108/52 L 97 12/06/17 05:53 12/06/17 05:53 12/06/17 05:53 12/06/17 05:53 12/06/17 05:53 Intake and Output: 12/06/17 12/06/17 06:59 18:59 Intake Total 840 Output Total 800 Balance 40 - Medications Medications: Current Medications Budesonide (Pulmicort Respules) 0.5 mg IH [id number] CAR Last Admin: 12/06/17 07:55 Dose: 0.5 mg Gabapentin (Neurontin) 600 mg PO Q8 CAR; Protocol Last Admin: 12/06/17 05:05 Dose: 600 mg Guaifenesin (Robitussin) 100 mg PO Q4H PRN PRN Reason: cough Last Admin: 12/05/17 05:38 Dose: 100 mg Azithromycin (Zithromax 500mg In Ns) 500 mg in 250 mls @ 167 mls/hr IVPB DAILY CAR; Protocol Last Admin: 12/05/17 10:08 Dose: 167 mls/hr Linezolid (Zyvox 600mg/300ml D5w) 600 mg in 300 mls @ 200 mls/hr IVPB Q12 CAR; Protocol Stop: 12/11/17 22:46 Last Admin: 12/05/17 22:11 Dose: 200 mls/hr Cefepime HCl (Maxipime 1gm) 1 gm in 100 mls @ 100 mls/hr IVPB Q12H CAR; Protocol Last Admin: 12/06/17 01:00 Dose: 100 mls/hr Ipratropium [place] (Atrovent) 0.5 mg IH [id number] CAR Last Admin: 12/06/17 07:55 Dose: 0.5 mg Levalbuterol HCl (Xopenex) 0.63 mg IH [id number] PRN PRN Reason: Shortness of Breath Last Admin: 12/05/17 15:18 Dose: 0.63 mg Metoprolol Tartrate (Lopressor) 25 mg PO 0800,1800 PRN PRN Reason: HR>115 Last Admin: 12/05/17 00:04 Dose: 25 mg Oxycodone/Acetaminophen (Percocet 5/325 Mg Tab) 2 tab PO Q6H PRN PRN Reason: Pain, Mild (1-3) Stop: 12/07/17 14:51 Pantoprazole Sodium (Protonix Ec Tab) 40 mg PO DAILY CAR Last Admin: 12/05/17 10:08 Dose: 40 mg Rivaroxaban (Xarelto) 15 mg PO DAILY [facility]; Protocol - Labs Labs: 12/06/17 04:07 12/06/17 04:07 PT 14.6 SECONDS (9.4-12.5) H 12/04/17 14:43 INR 1.27 12/04/17 14:43 APTT 24.9 Seconds (25.1-36.5) L 12/06/17 04:07 - Additional Findings Additional findings: - Constitutional Appears: Non-toxic, No Acute Distress - Head Exam Head Exam: NORMAL INSPECTION, NORMOCEPHALIC - Eye Exam Eye Exam: EOMI, Normal appearance. absent: Nystagmus, Scleral icterus - ENT Exam ENT Exam: Mucous Membranes Moist - Respiratory Exam Respiratory Exam: Clear to Auscultation Bilateral, NORMAL BREATHING PATTERN. absent: Rales, Rhonchi, Wheezes - Cardiovascular Exam Cardiovascular Exam: Tachycardia, Irregular Rhythm, +S1, +S2. absent: REGULAR RHYTHM, Systolic Murmur - GI/Abdominal Exam GI & Abdominal Exam: Normal Bowel Sounds, Soft. absent: Distended, Firm, Tenderness - Extremities Exam Extremities exam: Positive for: normal inspection. Negative for: calf tenderness, pedal edema - Neurological Exam Neurological exam: Alert, Oriented x3 - Skin Skin Exam: Intact, Normal Color Assessment and Plan - Assessment and Plan (Free Text) Assessment: Patient is a 66 yo female with PMH of COPD, HTN, spinal stenosis, herniated dis ks s/p MILD procedure, bursitis in hips presents to hospital for evaluation of cough. CXR shows PNA with possible lung mass; EKG showed Afib with RVR no prior heart disease history; Treated with azith/ceft in ED; ID, pulm, Cardio consulted. Chest CT shows findings consistent with PNA; Continuing patient on Azithromycin, Linezolid, Cefepime Plan: Sepsis Likely 2/2 to PNA ID consulted- Dr. Moreno- recommendations as below Pulm consulted- Dr. Lucia- recommendations as below 12-04-17 Cxray shows consolidation around left hilum 12-05-[address] shows consolidation consistent with PNA Procal pending 0.37; PNA studies pending ED gave ceft/azith; Switched to Cefepime, Azithromycin, Zyvox Afib w/ RVR Infection vs Heart Disease Cardio Consult- Dr. Youngblood- reccomendations appreciated Lopressor 5mg q6 PRN (HR>115) Igor-Vasc: 3; Patient needs to be on AC for increased clot risk; Xarelto 20mg daily Echo- 68% TSH normal MARLON Held home combo med Losartan/HCTZ Held home med meloxicam 1x NS @ 80mls/hr Repeat CBC/CMP in AM Hx of COPD Xopenex 0.63mg po IH q4h resp Elevated BNP Pt euvolemic; No JVD noted; no pitting edema; no crackles noted Will continue to monitor Chronic back pain 2/2 Spinal stenosis and herniated discks and bursitis Gabapentin 600mg tid Oxycodone 2 tab po PRN PPx GI ppx- Protonix 40mg po DVT ppx- Xarelto Dispo: Continue IV abx 1 more day and reassess as per ID Medical Management discussed with Dr. Tarun Pedro PGY-1
--- NOTE | 2017-12-06 09:32 | CON ---
DATE: 12/06/2017 PULMONARY CONSULTATION DICTATION REFERRING PHYSICIAN: Dr. Mcneil REASON FOR PULMONARY CONSULTATION: Pneumonia. HISTORY OF PRESENT ILLNESS: The patient is a 67-year-old female, with past medical history significant for chronic obstructive pulmonary disease, hypertension, spinal stenosis, who presents to [facility] with a 2-week history of increasing shortness of breath at rest, dyspnea on exertion, cough, and sputum production. There is no history of chest pain, coughing up of blood, or chest pain - made worse with deep respirations. There is no history of temperatures, chills or infectious exposure. There is no history of night sweats, weight loss or appetite change prior to the above events. No history of leg or calf pains. No history of syncope or diaphoresis. No history of recent travel or trauma. REVIEW OF SYSTEMS: No history of nausea, vomiting or diarrhea. No acute urinary symptoms. No new neurologic or musculoskeletal complaints. Rest of the review of systems is negative. ALLERGIES: NO KNOWN ALLERGIES. SOCIAL HISTORY: Positive for tobacco and negative for alcohol. FAMILY HISTORY: No inheritable diseases. HOME MEDICATIONS: Include Mobic, Neurontin, Ventolin, Hyzaar, Advair and Spiriva. PHYSICAL EXAMINATION: GENERAL: The patient appears comfortable this morning. She is not short of breath at rest. VITAL SIGNS: Temperature is 97.6, pulse 98, respirations 18, blood pressure 108/52. Oxygen saturation on nasal cannula is 97%. HEENT: Normocephalic, atraumatic. No JVD. CARDIOVASCULAR: Positive S1, S2. No S3 gallop. LUNGS: Decreased breath sounds at the bases. Minimal bilateral rhonchi. No wheezing. EXTREMITIES: Mild edema. No cyanosis, no clubbing. Calves are nontender to palpation. GI: Abdomen is soft, nontender and nondistended. Bowel sounds are positive. SKIN: No acute rash. NEUROLOGIC: Exam limited at the present time. PERTINENT LABORATORY DATA: Pertinent laboratory data: CAT scan of the chest was done yesterday and reviewed. There is a dense consolidation in the left apex, with some air bronchograms - consistent with pneumonia. There is also a small consolidation at the left base. There is no lymphadenopathy. CBC: White count 12.4K, hemoglobin 9.4, hematocrit 27.7, platelets of 285,000. Initial white count 24.8K. Complete metabolic profile: BUN 42, creatinine 1.5, glucose 125. Rest of the metabolic profile is within normal limits. Initial EKG done in the emergency room - consistent with rapid atrial fibrillation. IMPRESSION: 1. Left upper lobe, left lower lobe pneumonia. 2. Acute bronchitis. 3. Chronic obstructive pulmonary disease. 4. Atrial fibrillation. 5. Mild anemia. PLAN: The patient presents to [facility] with a 2-week history of worsening pulmonary symptoms. The patient did have a CAT scan of the chest done yesterday. Results are noted above. The CAT scan is most consistent with bilobar pneumonia at this point in time. However, I did state to the patient that she will need a repeat CAT scan - down the line - as an outpatient for comparison. She fully agrees. Input by Infectious Disease is noted. I would continue with the current antibiotic therapy for now. The leukocytosis is resolving. On physical exam, there is only minimal bronchospasm noted. In addition, there is no significant alveolar-arterial gradient. Oxygen saturation on nasal cannula is 97%. The patient is currently on Atrovent nebulizer treatments. I will add inhaled Pulmicort this morning. The patient is on Advair at home. The patient does state to feeling significantly better - since her hospital admission. Additional pulmonary intervention will be based on the clinical status of the patient. I will discuss the above with the attending physician this morning. Thank you very much for this pulmonary consultation. Nando Soler MD [facility]
--- NOTE | 2017-12-06 09:52 | CARD ---
APPROVED REPORT Date of service: 12/05/2017 EXAM: Two-dimensional and M-mode echocardiogram with Doppler and color Doppler. Other Information Quality : FairRhythm : INDICATION Atrial Fibrillation 2D DIMENSIONS Left Atrium (2D)4.3 (1.6-4.0cm)IVSd1.3 (0.7-1.1cm) LVDd4.1 (3.9-5.9cm)PWd1.3 (0.7-1.1cm) LVDs2.5 (2.5-4.0cm)FS (%) 37.8 % LVEF (%)68.0 (>50%) M-Mode DIMENSIONS Aortic Root3.10 (2.2-3.7cm)Aortic Cusp Exc.1.60 (1.5-2.0cm) Aortic Valve AoV Peak Lmvprrrl286.0cm/s Mitral Valve E/A ratio0.0 TDI E/Lateral E'0.0E/Medial E'0.0 Tricuspid Valve TR Peak [id number] [id number] Peak Gr.23mmHg [id number] LEFT VENTRICLE The left ventricle is normal size. There is mild concentric left ventricular hypertrophy. The left ventricular function is normal. The left ventricular ejection fraction is within the normal range. There is normal LV segmental wall motion. RIGHT VENTRICLE The right ventricle is normal size. ATRIA The left atrium is mildly dilated. The right atrium size is normal. The interatrial septum is intact with no evidence for an atrial septal defect. AORTIC VALVE The aortic valve is mildly calcified. MITRAL VALVE The mitral valve is normal in structure. Mitral regurgitation is mild. TRICUSPID VALVE The tricuspid valve is not well visualized. There is trace to mild tricuspid regurgitation. PULMONIC VALVE The pulmonic valve is not well visualized. GREAT VESSELS The aortic root is normal in size. PERICARDIAL EFFUSION There is no pericardial effusion. <Conclusion> Limited Study. The left ventricle is normal size. There is mild concentric left ventricular hypertrophy. The left ventricular function is normal. The aortic valve is mildly calcified. Aortic sclerosis. Mitral regurgitation is mild. There is trace to mild tricuspid regurgitation.
[2017-12-06] MEDS: Azithromycin 500MG/NS 250ml 500 MG/250 ML BAG IVPB SCH (10:17)
[2017-12-06] MEDS: Pantoprazole 40 mg EC Tab PO SCH (10:17)
[2017-12-06] MEDS: Linezolid 600 mg in D5W 300 ml 600 MG/300 ML BAG IVPB SCH ×2 (10:18→21:16)
--- NOTE | 2017-12-06 13:08 | CP.PCM.PN ---
<Stacey Andres - Last Filed: 12/06/17 13:09> Subjective - Date & Time of Evaluation Date of Evaluation: 12/06/17 Time of Evaluation: 08:00 - Subjective Subjective: PGY-3 Id resident progress note for Dr. Mccoy Patient states she's feeling much better. The cough has improved, and she's able to walk to the restroom. No fever. No n/v or diarrhea. Had episodes of hypotension overnight, however BP is stable at this time. Objective - Vital Signs/Intake and Output Vital Signs (last 24 hours): Temp Pulse Resp BP Pulse Ox 98.6 F 101 H 18 98/53 L 97 12/06/17 12:00 12/06/17 12:00 12/06/17 12:00 12/06/17 12:00 12/06/17 05:53 Intake and Output: 12/06/17 12/06/17 06:59 18:59 Intake Total 840 Output Total 800 Balance 40 - Medications Medications: Current Medications Budesonide (Pulmicort Respules) 0.5 mg IH [id number] CAR Last Admin: 12/06/17 07:55 Dose: 0.5 mg Gabapentin (Neurontin) 600 mg PO Q8 CAR; Protocol Last Admin: 12/06/17 05:05 Dose: 600 mg Guaifenesin (Robitussin) 100 mg PO Q4H PRN PRN Reason: cough Last Admin: 12/05/17 05:38 Dose: 100 mg Azithromycin (Zithromax 500mg In Ns) 500 mg in 250 mls @ 167 mls/hr IVPB DAILY [facility]; Protocol Last Admin: 12/06/17 10:17 Dose: 167 mls/hr Linezolid (Zyvox 600mg/300ml D5w) 600 mg in 300 mls @ 200 mls/hr IVPB Q12 CAR; Protocol Stop: 12/11/17 22:46 Last Admin: 12/06/17 10:18 Dose: 200 mls/hr Cefepime HCl (Maxipime 1gm) 1 gm in 100 mls @ 100 mls/hr IVPB Q12H CAR; Protocol Last Admin: 12/06/17 01:00 Dose: 100 mls/hr Ipratropium [place] (Atrovent) 0.5 mg IH [id number] CAR Last Admin: 12/06/17 11:22 Dose: 0.5 mg Levalbuterol HCl (Xopenex) 0.63 mg IH [id number] PRN PRN Reason: Shortness of Breath Last Admin: 12/05/17 15:18 Dose: 0.63 mg Metoprolol Tartrate (Lopressor) 25 mg PO 0800,1800 PRN PRN Reason: HR>115 Last Admin: 12/05/17 00:04 Dose: 25 mg Oxycodone/Acetaminophen (Percocet 5/325 Mg Tab) 2 tab PO Q6H PRN PRN Reason: Pain, Mild (1-3) Stop: 12/07/17 14:51 Pantoprazole Sodium (Protonix Ec Tab) 40 mg PO DAILY [facility] Last Admin: 12/06/17 10:17 Dose: 40 mg Rivaroxaban (Xarelto) 15 mg PO DAILY [facility]; Protocol Last Admin: 12/06/17 10:17 Dose: 15 mg - Labs Labs: 12/06/17 04:07 12/06/17 04:07 PT 14.6 SECONDS (9.4-12.5) H 12/04/17 14:43 INR 1.27 12/04/17 14:43 APTT 24.9 Seconds (25.1-36.5) L 12/06/17 04:07 - Constitutional Appears: No Acute Distress - Head Exam Head Exam: NORMAL INSPECTION, NORMOCEPHALIC - Eye Exam Eye Exam: Normal appearance - ENT Exam ENT Exam: Mucous Membranes Moist - Neck Exam Neck Exam: Normal Inspection - Respiratory Exam Respiratory Exam: Clear to Ausculation Bilateral, NORMAL BREATHING PATTERN. absent: Rales, Rhonchi, Wheezes, Respiratory Distress, Stridor - Cardiovascular Exam Cardiovascular Exam: Irregular Rhythm, REGULAR RHYTHM, +S1, +S2 - GI/Abdominal Exam GI & Abdominal Exam: Soft, Normal Bowel Sounds. absent: Distended, Firm, Guarding, Rigid, Tenderness Additional comments: Obese abdomen. - Extremities Exam Extremities Exam: Normal Inspection - Back Exam Back Exam: NORMAL INSPECTION - Neurological Exam Neurological Exam: Alert, Awake, Oriented x3 - Psychiatric Exam Psychiatric exam: Normal Affect - Skin Skin Exam: Dry, Intact, Warm Assessment and Plan - Assessment and Plan (Free Text) Assessment: Patient is a 67 y/o admitted with Sepsis with HAP as the possible source CT chest with dense consolidation in the anterior left upper lobe consistent with pneumonia and area of consolidation in the left lung base. Likely aspiration pna, less likely TB due to location RVR afib R/o COPD exacerbation versus CHF exacerbation MARLON COPD, htn spinal stenosis s/p MILD procedure, herniated disc, bursitis of the hip, morbidly obese (BMI 44) Hyperglycemia Plan: Leukocytosis trending down, blood cultures with so far no growth. Will obtain nares MRSA, and if negative will discontinue Zyvox. Influenza negative, strep pneumonia, urine legionella pending. Continue with cefepime, and Zithromax. Pulm and cardio following. Continue with medical management as per primary and meeting/event planner. Patient seen, examined and case discussed with Dr. Mccoy. <Marcell Mccoy - Last Filed: 12/06/17 21:27> Objective - Vital Signs/Intake and Output Vital Signs (last 24 hours): Temp Pulse Resp BP Pulse Ox 98.8 F 90 18 123/67 97 12/06/17 17:34 12/06/17 18:00 12/06/17 17:34 12/06/17 17:34 12/06/17 05:53 Intake and Output: 12/06/17 12/07/17 18:59 06:59 Intake Total 480 Balance 480 - Medications Medications: Current Medications Budesonide (Pulmicort Respules) 0.5 mg IH [id number] CAR Last Admin: 12/06/17 20:15 Dose: 0.5 mg Gabapentin (Neurontin) 600 mg PO Q8 CAR; Protocol Last Admin: 12/06/17 21:17 Dose: 600 mg Guaifenesin (Robitussin) 100 mg PO Q4H PRN PRN Reason: cough Last Admin: 12/05/17 05:38 Dose: 100 mg Azithromycin (Zithromax 500mg In Ns) 500 mg in 250 mls @ 167 mls/hr IVPB DAILY CAR; Protocol Last Admin: 12/06/17 10:17 Dose: 167 mls/hr Linezolid (Zyvox 600mg/300ml D5w) 600 mg in 300 mls @ 200 mls/hr IVPB Q12 CAR; Protocol Stop: 12/11/17 22:46 Last Admin: 12/06/17 21:16 Dose: 200 mls/hr Cefepime HCl (Maxipime 1gm) 1 gm in 100 mls @ 100 mls/hr IVPB Q12H CAR; Protocol Last Admin: 12/06/17 16:33 Dose: 100 mls/hr Sodium Chloride (Sodium Chloride 0.9%) 1,000 mls @ 80 mls/hr IV .[id number] ONE Stop: 12/07/17 03:11 Last Admin: 12/06/17 15:18 Dose: 80 mls/hr Ipratropium [place] (Atrovent) 0.5 mg IH [id number] CAR Last Admin: 12/06/17 20:15 Dose: 0.5 mg Levalbuterol HCl (Xopenex) 0.63 mg IH [id number] PRN PRN Reason: Shortness of Breath Last Admin: 12/05/17 15:18 Dose: 0.63 mg Metoprolol Tartrate (Lopressor) 25 mg PO 0800,1800 PRN PRN Reason: HR>115 Last Admin: 12/05/17 00:04 Dose: 25 mg Oxycodone/Acetaminophen (Percocet 5/325 Mg Tab) 2 tab PO Q6H PRN PRN Reason: Pain, Mild (1-3) Stop: 12/07/17 14:51 Last Admin: 12/06/17 16:39 Dose: 2 tab Pantoprazole Sodium (Protonix Ec Tab) 40 mg PO DAILY [facility] Last Admin: 12/06/17 10:17 Dose: 40 mg Rivaroxaban (Xarelto) 15 mg PO DAILY [facility]; Protocol Last Admin: 12/06/17 10:17 Dose: 15 mg - Labs Labs: 12/06/17 04:07 12/06/17 04:07 PT 14.6 SECONDS (9.4-12.5) H 12/04/17 14:43 INR 1.27 12/04/17 14:43 APTT 24.9 Seconds (25.1-36.5) L 12/06/17 04:07 Assessment and Plan - Assessment and Plan (Free Text) Plan: Infectious Diseases Attending Physician Attestation Patient seen and examined, discussed with medical tech. I have the pertinent clinical findings, history of present illness, medical histories, physical exam and pertinent labs and imaging. I agree with the above findings, assessment and plan. In addition, will continue Zyvox, Cefepime and Zithromax for probable sepsis due to HAP. Follow up blood cx, sputum cx, PCT, urine Legionella Ag, MRSA nares and will continue to monitor clinically and trend WBC count. She is improving clinically.
[2017-12-06] MEDS ORDERED: Sodium Chloride 0.9% 1,000 ML IV ONE (14:42)
[2017-12-07] MEDS: Ipratropium 0.02% Inhal Soln (0.5 mg/2.5 ml) UD IH SCH ×7 (00:30→23:55)
[2017-12-07] MEDS: Cefepime 1gm in NS 100ml 1 GM/100 ML BAG IVPB SCH ×2 (01:12→13:57)
[2017-12-07 07:11] LABS: BASO # 0.01 K/mm3 (0.0-2.0); BASO % 0.1 % (0.0-3.0); EOS # 0.2 (0.0-0.7); EOS % 1.9 % (1.5-5.0); GRAN # 7.76 (1.4-6.5); GRAN % 73.9 % (50.0-68.0); HEMOGLOBIN 9.3 g/dL (12.0-16.0); LYMPH # 1.9 (1.2-3.4); LYMPH % 18.4 % (22.0-35.0); MEAN CELL VOLUME 89.8 fl (80.0-105.0); MEAN CORPUSCULAR HEMOGLOBIN 29.7 pg (25.0-35.0); MEAN CORPUSCULAR HGB CONC 33.1 g/dl (31.0-37.0); MEAN PLATELET VOLUME 9.4 fl (7.0-11.0); MONO # 0.6 (0.1-0.6); MONO % 5.7 % (1.0-6.0); RBC 3.13 10^6/uL (3.5-6.1); WHITE BLOOD COUNT 10.5 10^3/ul (4.5-11.0)
[2017-12-07] MEDS: Levalbuterol 0.63 MG/3 ML Inhal Soln UD IH PRN (07:53)
[2017-12-07] MEDS: Budesonide 0.5 mg/2 ml Inhal Susp UD IH SCH ×2 (07:53→20:10)
--- NOTE | 2017-12-07 08:31 | PN ---
DATE: 12/07/2017 PULMONARY NOTE SUBJECTIVE: The patient appears very comfortable this morning. She is not short of breath at rest. PHYSICAL EXAMINATION: VITAL SIGNS: Temperature is 98.2, pulse on the monitor is 89, respirations 19, blood pressure 137/78. Oxygen saturation on room air is 95%. HEENT: Normocephalic, atraumatic. No JVD. CARDIOVASCULAR: Positive S1, S2. No S3 gallop. LUNGS: Improved breath sounds at the bases. Much less/minimal rhonchi. No wheezing. EXTREMITIES: Mild edema. No cyanosis. No clubbing. Calves are nontender to palpation. GI: Abdomen is soft, nontender and nondistended. Bowel sounds are positive. SKIN: No acute rash. NEUROLOGIC: Limited at the present time. IMPRESSION: 1. Left upper lobe, left lower lobe pneumonia. 2. Acute bronchitis. 3. Chronic obstructive pulmonary disease. 4. Atrial fibrillation. 5. Mild anemia. PLAN: The patient appears very comfortable this morning. She is not short of breath at rest. She does state to feeling much, much better overall. I did discuss the case with the night nurse at length. The night nurse stated that the patient had a very good night. On physical exam, there is significantly less bronchospasm noted. In addition, the oxygen saturation on room air is now 95%. I will continue with the current nebulizer treatments and inhaled steroids for now. The patient remains on antibiotic therapy - as per Infectious Disease. Input by Dr. Moreno is noted. Temperatures have now fully resolved. The leukocytosis has also fully resolved. Input by Cardiology is also noted. The patient remains on Xarelto. Clinical status of the patient is significantly improved - compared to the initial presentation. I did stress to the patient again that she will need a followup CAT scan for comparison - down the line as an outpatient. She fully agrees. I will also discuss the above with the attending physician. Nando Soler MD [email or web address]
[2017-12-07] MEDS: Pantoprazole 40 mg EC Tab PO SCH (09:49)
[2017-12-07] MEDS: Azithromycin 500MG/NS 250ml 500 MG/250 ML BAG IVPB SCH (09:50)
[2017-12-07] MEDS: Linezolid 600 mg in D5W 300 ml 600 MG/300 ML BAG IVPB SCH ×2 (09:51→21:37)
--- NOTE | 2017-12-07 10:46 | CP.PCM.PN ---
<Stacey Andres - Last Filed: 12/07/17 14:46> Subjective - Date & Time of Evaluation Date of Evaluation: 12/07/17 Time of Evaluation: 08:25 - Subjective Subjective: PGY-3 Resident ID progress note for Dr. Mccoy Patient states she's feeling much better. Denies fever or chills. The cough has improved. No n/v or diarrhea. Objective - Vital Signs/Intake and Output Vital Signs (last 24 hours): Temp Pulse Resp BP Pulse Ox 98.2 F 105 H 19 107/69 95 12/07/17 05:43 12/07/17 09:50 12/07/17 05:43 12/07/17 09:50 12/07/17 05:43 Intake and Output: 12/07/17 12/07/17 06:59 18:59 Intake Total 1160 Output Total 0 Balance 1160 - Medications Medications: Current Medications Budesonide (Pulmicort Respules) 0.5 mg IH [id number] CAR Last Admin: 12/07/17 07:53 Dose: 0.5 mg Gabapentin (Neurontin) 600 mg PO Q8 CAR; Protocol Last Admin: 12/07/17 05:03 Dose: 600 mg Guaifenesin (Robitussin) 100 mg PO Q4H PRN PRN Reason: cough Last Admin: 12/05/17 05:38 Dose: 100 mg Azithromycin (Zithromax 500mg In Ns) 500 mg in 250 mls @ 167 mls/hr IVPB DAILY CAR; Protocol Last Admin: 12/07/17 09:50 Dose: 167 mls/hr Linezolid (Zyvox 600mg/300ml D5w) 600 mg in 300 mls @ 200 mls/hr IVPB Q12 CAR; Protocol Stop: 12/11/17 22:46 Last Admin: 12/07/17 09:51 Dose: 200 mls/hr Cefepime HCl (Maxipime 1gm) 1 gm in 100 mls @ 100 mls/hr IVPB Q12H CAR; Protocol Last Admin: 12/07/17 01:12 Dose: 100 mls/hr Ipratropium [place] (Atrovent) 0.5 mg IH [id number] CAR Last Admin: 12/07/17 07:53 Dose: 0.5 mg Levalbuterol HCl (Xopenex) 0.63 mg IH [id number] PRN PRN Reason: Shortness of Breath Last Admin: 12/07/17 07:53 Dose: 0.63 mg Metoprolol Tartrate (Lopressor) 25 mg PO BID [facility] Oxycodone/Acetaminophen (Percocet 5/325 Mg Tab) 2 tab PO Q6H PRN PRN Reason: Pain, Mild (1-3) Stop: 12/07/17 14:51 Last Admin: 12/06/17 16:39 Dose: 2 tab Pantoprazole Sodium (Protonix Ec Tab) 40 mg PO DAILY [facility] Last Admin: 12/07/17 09:49 Dose: 40 mg Rivaroxaban (Xarelto) 15 mg PO DAILY [facility]; Protocol Last Admin: 12/07/17 09:49 Dose: 15 mg - Labs Labs: 12/07/17 06:30 12/07/17 06:30 PT 14.6 SECONDS (9.4-12.5) H 12/04/17 14:43 INR 1.27 12/04/17 14:43 APTT 24.9 Seconds (25.1-36.5) L 12/06/17 04:07 - Constitutional Appears: No Acute Distress - Head Exam Head Exam: ATRAUMATIC, NORMAL INSPECTION, NORMOCEPHALIC - Eye Exam Eye Exam: Normal appearance - ENT Exam ENT Exam: Mucous Membranes Moist - Neck Exam Neck Exam: Normal Inspection - Respiratory Exam Respiratory Exam: Clear to Ausculation Bilateral, NORMAL BREATHING PATTERN. absent: Rales, Rhonchi, Wheezes, Respiratory Distress, Stridor - Cardiovascular Exam Cardiovascular Exam: REGULAR RHYTHM, +S1, +S2. absent: Murmur - GI/Abdominal Exam GI & Abdominal Exam: Soft, Normal Bowel Sounds. absent: Distended, Firm, Guarding, Rigid, Tenderness Additional comments: obese abdomen. - Extremities Exam Extremities Exam: Normal Inspection - Back Exam Back Exam: NORMAL INSPECTION - Neurological Exam Neurological Exam: Alert, Awake, Oriented x3 - Psychiatric Exam Psychiatric exam: Normal Mood - Skin Skin Exam: Dry, Warm Assessment and Plan - Assessment and Plan (Free Text) Assessment: Patient is a 67 y/o admitted with: Sepsis with HAP as the possible source CT chest with dense consolidation in the anterior left upper lobe consistent with pneumonia and area of consolidation in the left lung base. Likely aspiration pna, less likely TB due to location RVR afib R/o COPD exacerbation versus CHF exacerbation MARLON COPD, htn spinal stenosis s/p MILD procedure, herniated disc, bursitis of the hip, morbidly obese (BMI 44) Hyperglycemia Anemia Plan: Leukocytosis resolved, blood cultures no growth. Influenza and urine legionella normal. Procal was normal. Continue with cefepime, and Zithromax day#3. Pending MRSA nares. Continue with zyvox. 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 Patient seen, examined and case discussed with Dr. Mccoy. <Marcell Mccoy - Last Filed: 12/07/17 19:17> Objective - Vital Signs/Intake and Output Vital Signs (last 24 hours): Temp Pulse Resp BP Pulse Ox 98.5 F 91 H 20 115/52 L 95 12/07/17 12:00 12/07/17 18:00 12/07/17 12:00 12/07/17 17:56 12/07/17 05:43 Intake and Output: 12/07/17 12/08/17 18:59 06:59 Intake Total 1610 Output Total 5 Balance 1605 - Medications Medications: Current Medications Budesonide (Pulmicort Respules) 0.5 mg IH [id number] CAR Last Admin: 12/07/17 07:53 Dose: 0.5 mg Gabapentin (Neurontin) 600 mg PO Q8 CAR; Protocol Last Admin: 12/07/17 13:57 Dose: 600 mg Guaifenesin (Robitussin) 100 mg PO Q4H PRN PRN Reason: cough Last Admin: 12/05/17 05:38 Dose: 100 mg Azithromycin (Zithromax 500mg In Ns) 500 mg in 250 mls @ 167 mls/hr IVPB DAILY CAR; Protocol Last Admin: 12/07/17 09:50 Dose: 167 mls/hr Linezolid (Zyvox 600mg/300ml D5w) 600 mg in 300 mls @ 200 mls/hr IVPB Q12 CAR; Protocol Stop: 12/11/17 22:46 Last Admin: 12/07/17 09:51 Dose: 200 mls/hr Cefepime HCl (Maxipime 1gm) 1 gm in 100 mls @ 100 mls/hr IVPB Q12H CAR; Protoco l Last Admin: 12/07/17 13:57 Dose: 100 mls/hr Ipratropium [place] (Atrovent) 0.5 mg IH [id number] CAR Last Admin: 12/07/17 15:10 Dose: 0.5 mg Levalbuterol HCl (Xopenex) 0.63 mg IH [id number] PRN PRN Reason: Shortness of Breath Last Admin: 12/07/17 07:53 Dose: 0.63 mg Metoprolol Tartrate (Lopressor) 25 mg PO BID [facility] Last Admin: 12/07/17 17:56 Dose: 25 mg Oxycodone/Acetaminophen (Percocet 2.5/325 Mg Tab) 2 tab PO Q6H PRN PRN Reason: Pain, severe (8-10) Last Admin: 12/07/17 17:56 Dose: 2 tab Pantoprazole Sodium (Protonix Ec Tab) 40 mg PO DAILY [facility] Last Admin: 12/07/17 09:49 Dose: 40 mg Rivaroxaban (Xarelto) 15 mg PO DAILY [facility]; Protocol Last Admin: 12/07/17 09:49 Dose: 15 mg - Labs Labs: 12/07/17 06:30 12/07/17 06:30 PT 14.6 SECONDS (9.4-12.5) H 12/04/17 14:43 INR 1.27 12/04/17 14:43 APTT 24.9 Seconds (25.1-36.5) L 12/06/17 04:07 Assessment and Plan - Assessment and Plan (Free Text) Plan: Infectious Diseases Attending Physician Attestation Patient seen and examined, discussed with clinical medical transcriptionist. I have the pertinent clinical findings, history of present illness, medical histories, physical exam and pertinent labs and imaging. I agree with the above findings, assessment and plan. In addition, will continue Zyvox, Cefepime and Zithromax day 3 for probable sepsis due to HAP. Follow up final blood cx, sputum cx; urine Legionella Ag is negative, MRSA nares is pending and will continue to monitor clinically and trend WBC count. She is improving clinically. Discussed with Dr. Soler.
[2017-12-07 12:16] VITALS: RESP 20
--- NOTE | 2017-12-07 13:06 | CP.PCM.PN ---
<Felecia Pedro - Last Filed: 12/07/17 13:54> Subjective - Date & Time of Evaluation Date of Evaluation: 12/07/17 Time of Evaluation: 09:30 - Subjective Subjective: PGY-1 Medicine Progress Note for Dr. Palma's service Patient seen and examined at bedside. Patient reports ongoing cough but improved drastically from admission. Patient denies fevers, chills, chest pain, sob, n/v, constipation or diarrhea, dysuria. Objective - Vital Signs/Intake and Output Vital Signs (last 24 hours): Temp Pulse Resp BP Pulse Ox 98.5 F 94 H 20 123/64 95 12/07/17 12:00 12/07/17 12:00 12/07/17 12:00 12/07/17 12:00 12/07/17 05:43 Intake and Output: 12/07/17 12/07/17 06:59 18:59 Intake Total 1160 Output Total 0 Balance 1160 - Medications Medications: Current Medications Budesonide (Pulmicort Respules) 0.5 mg IH [id number] CAR Last Admin: 12/07/17 07:53 Dose: 0.5 mg Gabapentin (Neurontin) 600 mg PO Q8 CAR; Protocol Last Admin: 12/07/17 05:03 Dose: 600 mg Guaifenesin (Robitussin) 100 mg PO Q4H PRN PRN Reason: cough Last Admin: 12/05/17 05:38 Dose: 100 mg Azithromycin (Zithromax 500mg In Ns) 500 mg in 250 mls @ 167 mls/hr IVPB DAILY CAR; Protocol Last Admin: 12/07/17 09:50 Dose: 167 mls/hr Linezolid (Zyvox 600mg/300ml D5w) 600 mg in 300 mls @ 200 mls/hr IVPB Q12 CAR; Protocol Stop: 12/11/17 22:46 Last Admin: 12/07/17 09:51 Dose: 200 mls/hr Cefepime HCl (Maxipime 1gm) 1 gm in 100 mls @ 100 mls/hr IVPB Q12H CAR; Protocol Last Admin: 12/07/17 01:12 Dose: 100 mls/hr Ipratropium [place] (Atrovent) 0.5 mg IH [id number] CAR Last Admin: 12/07/17 11:44 Dose: 0.5 mg Levalbuterol HCl (Xopenex) 0.63 mg IH [id number] PRN PRN Reason: Shortness of Breath Last Admin: 12/07/17 07:53 Dose: 0.63 mg Metoprolol Tartrate (Lopressor) 25 mg PO BID [facility] Oxycodone/Acetaminophen (Percocet 5/325 Mg Tab) 2 tab PO Q6H PRN PRN Reason: Pain, Mild (1-3) Stop: 12/07/17 14:51 Last Admin: 12/06/17 16:39 Dose: 2 tab Pantoprazole Sodium (Protonix Ec Tab) 40 mg PO DAILY [facility] Last Admin: 12/07/17 09:49 Dose: 40 mg Rivaroxaban (Xarelto) 15 mg PO DAILY [facility]; Protocol Last Admin: 12/07/17 09:49 Dose: 15 mg - Labs Labs: 12/07/17 06:30 12/07/17 06:30 PT 14.6 SECONDS (9.4-12.5) H 12/04/17 14:43 INR 1.27 12/04/17 14:43 APTT 24.9 Seconds (25.1-36.5) L 12/06/17 04:07 - Additional Findings Additional findings: - Constitutional Appears: Non-toxic, No Acute Distress - Head Exam Head Exam: NORMAL INSPECTION, NORMOCEPHALIC - Eye Exam Eye Exam: EOMI, Normal appearance. absent: Nystagmus, Scleral icterus - ENT Exam ENT Exam: Mucous Membranes Moist - Respiratory Exam Respiratory Exam: Clear to Auscultation Bilateral, NORMAL BREATHING PATTERN. absent: Rales, Rhonchi, Wheezes - Cardiovascular Exam Cardiovascular Exam: Tachycardia, Irregular Rhythm, +S1, +S2. absent: REGULAR RHYTHM, Systolic Murmur - GI/Abdominal Exam GI & Abdominal Exam: Normal Bowel Sounds, Soft. absent: Distended, Firm, Tenderness - Extremities Exam Extremities exam: Positive for: normal inspection. Negative for: calf tenderness, pedal edema - Neurological Exam Neurological exam: Alert, Oriented x3 - Skin Skin Exam: Intact, Normal Color Assessment and Plan - Assessment and Plan (Free Text) Assessment: Patient is a 66 yo female with PMH of COPD, HTN, spinal stenosis, herniated disks s/p MILD procedure, bursitis in hips presents to hospital for evaluation of cough. CXR shows PNA with possible lung mass; EKG showed Afib with RVR no prior heart disease history; Treated with azith/ceft in ED; ID, pulm, Cardio consulted. Chest CT shows findings consistent with PNA; Continuing patient on Azithromycin, Linezolid, Cefepime Plan: Sepsis Likely 2/2 to PNA ID consulted- Dr. Moreno- recommendations as below Pulm consulted- Dr. Lucia- recommendations as below 12-04-17 Cxray shows consolidation around left hilum 12-05-[address] shows consolidation consistent with PNA Procal pending 0.37; PNA studies pending ED gave ceft/azith; Switched to Cefepime, Azithromycin, Zyvox Afib w/ RVR Infection vs Heart Disease Cardio Consult- Dr. Youngblood- outpatient nuclear stress test Lopressor 5mg q6 PRN (HR>115); Igor-Vasc: 3; Patient needs to be on AC for increased clot risk; Xarelto 20mg daily Echo- 68% TSH normal MARLON Held home combo med Losartan/HCTZ Held home med meloxicam Repeat CBC/CMP in AM Hx of COPD Xopenex 0.63mg po IH q4h resp Elevated BNP Pt euvolemic; No JVD noted; no pitting edema; no crackles noted Will continue to monitor Chronic back pain 2/2 Spinal stenosis and herniated discks and bursitis Gabapentin 600mg tid Oxycodone 2 tab po PRN PPx GI ppx- Protonix 40mg po DVT ppx- Xarelto 15mg po daily Dispo: Continue IV abx 1 more day and reassess as per ID Medical Management discussed with Dr. Tarun Pedro PGY-1 <Cyn Palma - Last Filed: 12/07/17 16:42> Objective - Vital Signs/Intake and Output Vital Signs (last 24 hours): Temp Pulse Resp BP Pulse Ox 98.5 F 97 H 20 123/64 95 12/07/17 12:00 12/07/17 14:00 12/07/17 12:00 12/07/17 12:00 12/07/17 05:43 Intake and Output: 12/07/17 12/07/17 06:59 18:59 Intake Total 1160 Output Total 0 Balance 1160 - Medications Medications: Current Medications Budesonide (Pulmicort Respules) 0.5 mg IH [id number] CAR Last Admin: 12/07/17 07:53 Dose: 0.5 mg Gabapentin (Neurontin) 600 mg PO Q8 CAR; Protocol Last Admin: 12/07/17 13:57 Dose: 600 mg Guaifenesin (Robitussin) 100 mg PO Q4H PRN PRN Reason: cough Last Admin: 12/05/17 05:38 Dose: 100 mg Azithromycin (Zithromax 500mg In Ns) 500 mg in 250 mls @ 167 mls/hr IVPB DAILY CAR; Protocol Last Admin: 12/07/17 09:50 Dose: 167 mls/hr Linezolid (Zyvox 600mg/300ml D5w) 600 mg in 300 mls @ 200 mls/hr IVPB Q12 CAR; Protocol Stop: 12/11/17 22:46 Last Admin: 12/07/17 09:51 Dose: 200 mls/hr Cefepime HCl (Maxipime 1gm) 1 gm in 100 mls @ 100 mls/hr IVPB Q12H CAR; Protocol Last Admin: 12/07/17 13:57 Dose: 100 mls/hr Ipratropium [place] (Atrovent) 0.5 mg IH [id number] CAR Last Admin: 12/07/17 15:10 Dose: 0.5 mg Levalbuterol HCl (Xopenex) 0.63 mg IH [id number] PRN PRN Reason: Shortness of Breath Last Admin: 12/07/17 07:53 Dose: 0.63 mg Metoprolol Tartrate (Lopressor) 25 mg PO BID [facility] Pantoprazole Sodium (Protonix Ec Tab) 40 mg PO DAILY [facility] Last Admin: 12/07/17 09:49 Dose: 40 mg Rivaroxaban (Xarelto) 15 mg PO DAILY [facility]; Protocol Last Admin: 12/07/17 09:49 Dose: 15 mg - Labs Labs: 12/07/17 06:30 12/07/17 06:30 PT 14.6 SECONDS (9.4-12.5) H 12/04/17 14:43 INR 1.27 12/04/17 14:43 APTT 24.9 Seconds (25.1-36.5) L 12/06/17 04:07 Attending/Attestation - Attestation I have personally seen and examined this patient.: Yes I have fully participated in the care of the patient.: Yes I have reviewed all pertinent clinical information, including history, physical exam and plan: Yes Notes (Text): 12/07/17 16:35 66 year old female with past medical history of COPD, hypertension, and spinal stenosis who presented with cough and shortness of breath. She was started on iv antibiotics for pneumonia. She was seen by pulmonary who recommended repeating CT chest for follow up as outpatient. She was also seen by cardiology for afib with rvr. Patient is on lopressor and xarelto. Leukocytosis and MARLON have resolved. Patient's symptoms are overall improved. Anticipate d/c planning in 24 hrs if stable. Cyn Palma MD Hospitalist.
[2017-12-07] MEDS: Oxycodone/Acetaminophen 2.5/325 mg Tab PO PRN (17:56)
[2017-12-07 22:38] LABS: SOURCE SERUM
[2017-12-08 00:18] VITALS: O2SAT 99
[2017-12-08] MEDS: Cefepime 1gm in NS 100ml 1 GM/100 ML BAG IVPB SCH ×2 (01:42→13:05)
[2017-12-08] MEDS: Oxycodone/Acetaminophen 2.5/325 mg Tab PO PRN (03:11)
[2017-12-08] MEDS: Ipratropium 0.02% Inhal Soln (0.5 mg/2.5 ml) UD IH SCH ×4 (04:40→16:47)
[2017-12-08 07:17] LABS: BASO # 0.01 K/mm3 (0.0-2.0); BASO % 0.1 % (0.0-3.0); EOS # 0.2 (0.0-0.7); EOS % 1.7 % (1.5-5.0); GRAN # 5.95 (1.4-6.5); GRAN % 64.9 % (50.0-68.0); HEMOGLOBIN 9.3 g/dL (12.0-16.0); LYMPH # 2.5 (1.2-3.4); LYMPH % 26.9 % (22.0-35.0); MEAN CELL VOLUME 90.7 fl (80.0-105.0); MEAN CORPUSCULAR HEMOGLOBIN 29.8 pg (25.0-35.0); MEAN CORPUSCULAR HGB CONC 32.9 g/dl (31.0-37.0); MEAN PLATELET VOLUME 9.2 fl (7.0-11.0); MONO # 0.6 (0.1-0.6); MONO % 6.4 % (1.0-6.0); RBC 3.12 10^6/uL (3.5-6.1); WHITE BLOOD COUNT 9.2 10^3/ul (4.5-11.0)
[2017-12-08 07:35] LABS: CALCIUM 8.9 mg/dL (8.4-10.5)
[2017-12-08] MEDS ORDERED: Oxycodone/Acetaminophen 5/325 mg Tab PO STA (07:37)
[2017-12-08] MEDS ORDERED: Metoprolol Succinate 50 mg XL Tab PO SCH (08:00)
--- NOTE | 2017-12-08 08:17 | CP.PCM.PN ---
Subjective - Date & Time of Evaluation Date of Evaluation: 12/08/17 Time of Evaluation: 07:00 - Subjective Subjective: Stable on 2R. She feels better. No CP, SOB Cough now. V/S noted. RSR 122/55 PE: Lungs: rhonchi Cor.: S1S2 Abd.: soft Ext.: no edema Neuro.: alert I/O= 2230/305 Labs: WBC = 9200, Cr.+ 1.1, K+= 4.3 BC X2 NG at 3 days Echo done: Nl LV. See report. Objective - Vital Signs/Intake and Output Vital Signs (last 24 hours): Temp Pulse Resp BP Pulse Ox 98.3 F 81 20 122/55 L 99 12/08/17 06:00 12/08/17 06:00 12/08/17 06:00 12/08/17 06:00 12/08/17 06:00 Intake and Output: 12/08/17 12/08/17 06:59 18:59 Intake Total 2230 Output Total 305 Balance 1925 - Medications Medications: Current Medications Budesonide (Pulmicort Respules) 0.5 mg IH [id number] CAR Last Admin: 12/07/17 20:10 Dose: 0.5 mg Gabapentin (Neurontin) 600 mg PO Q8 CAR; Protocol Last Admin: 12/08/17 05:25 Dose: 600 mg Guaifenesin (Robitussin) 100 mg PO Q4H PRN PRN Reason: cough Last Admin: 12/05/17 05:38 Dose: 100 mg Azithromycin (Zithromax 500mg In Ns) 500 mg in 250 mls @ 167 mls/hr IVPB DAILY [facility]; Protocol Last Admin: 12/07/17 09:50 Dose: 167 mls/hr Cefepime HCl (Maxipime 1gm) 1 gm in 100 mls @ 100 mls/hr IVPB Q12H CAR; Protocol Last Admin: 12/08/17 01:42 Dose: 100 mls/hr Ipratropium [place] (Atrovent) 0.5 mg IH [id number] CAR Last Admin: 12/08/17 04:40 Dose: Not Given Levalbuterol HCl (Xopenex) 0.63 mg IH [id number] PRN PRN Reason: Shortness of Breath Last Admin: 12/07/17 07:53 Dose: 0.63 mg Metoprolol Tartrate (Lopressor) 25 mg PO BID [facility] Last Admin: 12/07/17 17:56 Dose: 25 mg Oxycodone/Acetaminophen (Percocet 2.5/325 Mg Tab) 2 tab PO Q6H PRN PRN Reason: Pain, severe (8-10) Last Admin: 12/08/17 03:11 Dose: 2 tab Pantoprazole Sodium (Protonix Ec Tab) 40 mg PO DAILY [facility] Last Admin: 12/07/17 09:49 Dose: 40 mg Rivaroxaban (Xarelto) 15 mg PO DAILY [facility]; Protocol Last Admin: 12/07/17 09:49 Dose: 15 mg - Labs Labs: 12/08/17 06:30 12/08/17 06:30 PT 14.6 SECONDS (9.4-12.5) H 12/04/17 14:43 INR 1.27 12/04/17 14:43 APTT 24.9 Seconds (25.1-36.5) L 12/06/17 04:07 Assessment and Plan - Assessment and Plan (Free Text) Assessment: SOB, Cough, Pneumonia PAF with RVR, CHADs = 3 COPD HBP Acute renal insufficiency, improved Anemia Obesity Spinal stenosis with H/O back Surgery and chronic pain. Former Smoker Plan: Metoprolol ER 50/day Xarelto 15/day, adjust dose as out-pt. if renal fx improves AB OOB as angelo. Out-pt nuclear stress test to be arranged As per ID, Pulm., Medical Team
[2017-12-08] MEDS: Pantoprazole 40 mg EC Tab PO SCH (09:00)
[2017-12-08] MEDS: Azithromycin 500MG/NS 250ml 500 MG/250 ML BAG IVPB SCH (09:00)
--- NOTE | 2017-12-08 09:26 | PN ---
DATE: 12/07/2017 SUBJECTIVE: The patient was seen lying in bed on telemetry. She states she is comfortable. Her dyspnea is improved. Her cough is improved as well. She continues to have paroxysmal atrial fibrillation with occasional rapid rate. Her beta-duncan has been withheld several times, had been ordered only as a p.r.n. medication. CURRENT MEDICATIONS: Include Atrovent, metoprolol 25 mg b.i.d., Maxipime, Neurontin, Protonix, Pulmicort inhaler, Xarelto, Xopenex, Zithromax and Zyvox. OBJECTIVE: GENERAL: She is an obese, middle-aged woman. VITAL SIGNS: Her blood pressure is low 110/70, pulse of 90 and sinus, respirations are 16. She is afebrile. HEENT: No JVD. CHEST: Bilateral scattered rhonchi heard. HEART: Reveals PMI displaced laterally. Systolic murmur in the left sternal border. ABDOMEN: Soft, obese, nontender, normoactive bowel sounds. EXTREMITIES: No edema. DIAGNOSTIC DATA: Potassium is 3.8, BUN and creatinine are 24 and 1.2, hemoglobin and hematocrit 9.3 and 28.1 with a white count of 10.5, platelet count 309,000. IMPRESSION: 1. Recent multilobar pneumonia, clinically improved. 2. Paroxysmal atrial fibrillation with suboptimal heart rate control, in part due to withholding of medication. 3. History of hypertension and chronic obesity. 4. Renal insufficiency, clinically improved. RECOMMENDATIONS: Metoprolol will be continued and held only for systolic blood pressure below 90. If needed, digoxin can be added for heart rate control in the interim. Antibiotic therapy and bronchodilator therapy should continue. We will continue to follow and made further recommendations as appropriate. Heron Youngblood MD
[2017-12-08] MEDS: Budesonide 0.5 mg/2 ml Inhal Susp UD IH SCH (09:35)
--- NOTE | 2017-12-08 09:54 | PN ---
DATE: 12/08/2017 PULMONARY PROGRESS NOTE SUBJECTIVE: The patient has bouts of crying in the hospital. She is not willing to discuss the reason. Present also is her son. She denies any significant shortness of breath. She states that she is markedly improved. She hopes to be going home soon. PHYSICAL EXAMINATION: VITAL SIGNS: Remain stable. She is afebrile. Respiratory rate of , blood pressure 136/80, oxygen sat 96% on room air. HEENT: Normocephalic, atraumatic. NECK: No JVD. No bruit. CARDIOVASCULAR: Regular rhythm. S1, S2 without murmur, gallop or rub. LUNGS: Improved breath sounds when compared to previous. Minimal rhonchi noted. There is absolutely no wheezing. ABDOMEN: Soft. Bowels sounds normoactive without mass, guarding or rebound. EXTREMITIES: Reveal trace edema. No cyanosis. No clubbing. Homans' sign negative. SKIN: No rash or excoriation. NEUROLOGIC: No focal findings. IMPRESSION: 1. Status post left upper lobe and left lower lobe pneumonia. 2. Bronchitis. 3. Chronic obstructive pulmonary disease. 4. Atrial fibrillation. 5. Anemia. PLAN: The patient will be discharged shortly on home antibiotics. I have discussed with her her home medications which she has. She will call the office upon discharge and make an appointment to see me within 5-7 days. If there are any problems, she has been told she can call me at anytime. The x-ray must be followed to complete resolution. She should continue her anticoagulant, Xarelto. Followup x-ray or possibly CT in the past as an outpatient to make sure that there is no additional pathology. Case discussed at length with the patient and son. Tae Lucia MD
--- NOTE | 2017-12-08 11:37 | CP.PCM.PN ---
<Stacey Andres - Last Filed: 12/08/17 13:30> Subjective - Date & Time of Evaluation Date of Evaluation: 12/08/17 Time of Evaluation: 09:50 - Subjective Subjective: PGY-3 Resident ID progress note for Dr Mccoy Patient with no acute events overnight. Remains afebrile. States the shortness of breath and cough has improved. No diarrhea, nausea, or vomiting. Objective - Vital Signs/Intake and Output Vital Signs (last 24 hours): Temp Pulse Resp BP Pulse Ox 98.3 F 105 H 20 131/71 99 12/08/17 06:00 12/08/17 10:00 12/08/17 06:00 12/08/17 09:00 12/08/17 06:00 Intake and Output: 12/08/17 12/08/17 06:59 18:59 Intake Total 2230 Output Total 305 Balance 1925 - Medications Medications: Current Medications Budesonide (Pulmicort Respules) 0.5 mg IH [id number] CAR Last Admin: 12/08/17 09:35 Dose: 0.5 mg Gabapentin (Neurontin) 600 mg PO Q8 CAR; Protocol Last Admin: 12/08/17 05:25 Dose: 600 mg Guaifenesin (Robitussin) 100 mg PO Q4H PRN PRN Reason: cough Last Admin: 12/05/17 05:38 Dose: 100 mg Azithromycin (Zithromax 500mg In Ns) 500 mg in 250 mls @ 167 mls/hr IVPB DAILY CAR; Protocol Last Admin: 12/08/17 09:00 Dose: 167 mls/hr Cefepime HCl (Maxipime 1gm) 1 gm in 100 mls @ 100 mls/hr IVPB Q12H CAR; Protocol Last Admin: 12/08/17 01:42 Dose: 100 mls/hr Ipratropium [place] (Atrovent) 0.5 mg IH [id number] CAR Last Admin: 12/08/17 09:35 Dose: 0.5 mg Levalbuterol HCl (Xopenex) 0.63 mg IH [id number] PRN PRN Reason: Shortness of Breath Last Admin: 12/07/17 07:53 Dose: 0.63 mg Metoprolol Succinate (Toprol Xl) 50 mg PO BRK CAR Last Admin: 12/08/17 09:00 Dose: 50 mg Oxycodone/Acetaminophen (Percocet 2.5/325 Mg Tab) 2 tab PO Q6H PRN PRN Reason: Pain, severe (8-10) Last Admin: 12/08/17 03:11 Dose: 2 tab Pantoprazole Sodium (Protonix Ec Tab) 40 mg PO DAILY CAR Last Admin: 12/08/17 09:00 Dose: 40 mg Rivaroxaban (Xarelto) 15 mg PO DAILY [facility]; Protocol Last Admin: 12/08/17 09:00 Dose: 15 mg - Labs Labs: 12/08/17 06:30 12/08/17 06:30 PT 14.6 SECONDS (9.4-12.5) H 12/04/17 14:43 INR 1.27 12/04/17 14:43 APTT 24.9 Seconds (25.1-36.5) L 12/06/17 04:07 - Constitutional Appears: No Acute Distress, Older Than Stated Age, Chronically Ill - Head Exam Head Exam: ATRAUMATIC, NORMAL INSPECTION, NORMOCEPHALIC - Eye Exam Eye Exam: Normal appearance - ENT Exam ENT Exam: Mucous Membranes Moist - Neck Exam Neck Exam: Normal Inspection - Respiratory Exam Respiratory Exam: Clear to Ausculation Bilateral, NORMAL BREATHING PATTERN. absent: Rales, Rhonchi, Wheezes, Respiratory Distress, Stridor - Cardiovascular Exam Cardiovascular Exam: Irregular Rhythm, +S1, +S2. absent: JVD, RRR - GI/Abdominal Exam GI & Abdominal Exam: Soft, Normal Bowel Sounds. absent: Distended, Firm, Gua rding, Rigid, Tenderness - Extremities Exam Extremities Exam: Normal Inspection - Back Exam Back Exam: NORMAL INSPECTION - Neurological Exam Neurological Exam: Alert, Awake, Oriented x3 - Psychiatric Exam Psychiatric exam: Normal Affect, Normal Mood - Skin Skin Exam: Dry, Warm Assessment and Plan - Assessment and Plan (Free Text) Assessment: Patient is a 67 y/o admitted with: Sepsis with HAP as the possible source CT chest with dense consolidation in the anterior left upper lobe consistent with pneumonia and area of consolidation in the left lung base. Likely aspiration pna, less likely TB due to location RVR afib R/o COPD exacerbation versus CHF exacerbation MARLON COPD, htn spinal stenosis s/p MILD procedure, herniated disc, bursitis of the hip, morbidly obese (BMI 44) Hyperglycemia Anemia Plan: Leukocytosis resolved, blood cultures no growth. Influenza and urine legionella normal. Procal was normal. On cefepime, and Zithromax day#4. Nares MRSA negative and patient doesn't appear toxic, thus discontinued Zyvox. May switch to vantin and Zithromax for 3 more days. Continue with medical management as per primary and security services manager. Patient seen, examined and case discussed with Dr. Mccoy. <Marcell Mccoy - Last Filed: 12/08/17 17:15> Objective - Vital Signs/Intake and Output Vital Signs (last 24 hours): Temp Pulse Resp BP Pulse Ox 98.7 F 86 20 109/53 L 99 12/08/17 12:39 12/08/17 12:39 12/08/17 12:39 12/08/17 12:39 12/08/17 06:00 Intake and Output: 12/08/17 12/08/17 06:59 18:59 Intake Total 2230 Output Total 305 Balance 1925 - Medications Medications: Current Medications Budesonide (Pulmicort Respules) 0.5 mg IH [id number] CAR Last Admin: 12/08/17 09:35 Dose: 0.5 mg Gabapentin (Neurontin) 600 mg PO Q8 CAR; Protocol Last Admin: 12/08/17 13:05 Dose: 600 mg Guaifenesin (Robitussin) 100 mg PO Q4H PRN PRN Reason: cough Last Admin: 12/05/17 05:38 Dose: 100 mg Azithromycin (Zithromax 500mg In Ns) 500 mg in 250 mls @ 167 mls/hr IVPB DAILY CAR; Protocol Last Admin: 12/08/17 09:00 Dose: 167 mls/hr Cefepime HCl (Maxipime 1gm) 1 gm in 100 mls @ 100 mls/hr IVPB Q12H CAR; Protocol Last Admin: 12/08/17 13:05 Dose: 100 mls/hr Ipratropium [place] (Atrovent) 0.5 mg IH [id number] CAR Last Admin: 12/08/17 16:47 Dose: Not Given Levalbuterol HCl (Xopenex) 0.63 mg IH [id number] PRN PRN Reason: Shortness of Breath Last Admin: 12/07/17 07:53 Dose: 0.63 mg Metoprolol Succinate (Toprol Xl) 50 mg PO BRK CAR Last Admin: 12/08/17 09:00 Dose: 50 mg Oxycodone/Acetaminophen (Percocet 2.5/325 Mg Tab) 2 tab PO Q6H PRN PRN Reason: Pain, severe (8-10) Last Admin: 12/08/17 03:11 Dose: 2 tab Pantoprazole Sodium (Protonix Ec Tab) 40 mg PO DAILY CAR Last Admin: 12/08/17 09:00 Dose: 40 mg Rivaroxaban (Xarelto) 15 mg PO DAILY [facility]; Protocol Last Admin: 12/08/17 09:00 Dose: 15 mg - Labs Labs: 12/08/17 06:30 12/08/17 06:30 PT 14.6 SECONDS (9.4-12.5) H 12/04/17 14:43 INR 1.27 12/04/17 14:43 APTT 24.9 Seconds (25.1-36.5) L 12/06/17 04:07 Assessment and Plan - Assessment and Plan (Free Text) Plan: Infectious Diseases Attending Physician Attestation Patient seen and examined, discussed with territory sales manager medical. I have the pertinent clinical findings, history of present illness, medical histories, physical exam and pertinent labs and imaging. I agree with the above findings, assessment and plan. In addition, on Cefepime and Zithromax day 4 for probable sepsis due to HAP. Cultures have been negative, urine Legionella Ag is negative, MRSA nares is negative. She has improved significantly - we can switch to PO Cefpodoxime and PO zithromax for another 3-4 days and should follow up with PMD as outpatient.
[2017-12-08 12:40] VITALS: BP 109/53; PULSE 86; TEMP 98.7
--- NOTE | 2017-12-08 14:32 | CP.PCM.DIS ---
<Felecia Pedro - Last Filed: 12/08/17 14:29> Provider - Provider Date of Admission: 12/04/17 13:52 Attending physician: Cyn Palma MD Time Spent in preparation of Discharge (in minutes): 45 Hospital Course - Lab Results Lab Results: Micro Results 12/06/17 10:00 Naris MRSA Culture (Admit) - Final MRSA NOT DETECTED 12/04/17 15:50 Blood-Venous Blood Culture - Preliminary NO GROWTH AFTER 3 DAYS 12/04/17 15:30 Blood-Venous Blood Culture - Preliminary NO GROWTH AFTER 3 DAYS Most Recent Lab Values WBC 9.2 10^3/ul (4.5-11.0) 12/08/17 06:30 RBC 3.12 10^6/uL (3.5-6.1) L 12/08/17 06:30 Hgb 9.3 g/dL (12.0-16.0) L 12/08/17 06:30 Hct 28.3 % (36.0-48.0) L 12/08/17 06:30 MCV 90.7 fl (80.0-105.0) 12/08/17 06:30 MCH 29.8 pg (25.0-35.0) 12/08/17 06:30 MCHC 32.9 g/dl (31.0-37.0) 12/08/17 06:30 RDW 13.0 % (11.5-14.5) 12/08/17 06:30 Plt Count 292 10^3/uL (120.0-450.0) 12/08/17 06:30 MPV 9.2 fl (7.0-11.0) 12/08/17 06:30 Gran % 64.9 % (50.0-68.0) 12/08/17 06:30 Lymph % (Auto) 26.9 % (22.0-35.0) 12/08/17 06:30 [place] % (Auto) 6.4 % (1.0-6.0) H 12/08/17 06:30 Eos % (Auto) 1.7 % (1.5-5.0) 12/08/17 06:30 Baso % (Auto) 0.1 % (0.0-3.0) 12/08/17 06:30 Gran # 5.95 (1.4-6.5) 12/08/17 06:30 Lymph # (Auto) 2.5 (1.2-3.4) 12/08/17 06:30 [place] # (Auto) 0.6 (0.1-0.6) 12/08/17 06:30 Eos # (Auto) 0.2 (0.0-0.7) 12/08/17 06:30 Baso # (Auto) 0.01 K/mm3 (0.0-2.0) 12/08/17 06:30 PT 14.6 SECONDS (9.4-12.5) H 12/04/17 14:43 INR 1.27 12/04/17 14:43 APTT 24.9 Seconds (25.1-36.5) L 12/06/17 04:07 pO2 43 mm/Hg (30-55) 12/04/17 15:53 VBG pH 7.41 (7.32-7.43) 12/04/17 15:53 VBG pCO2 43.0 (40-60) 12/04/17 15:53 VBG HCO3 27.3 mmol/l (21-28) 12/04/17 15:53 VBG Total CO2 28.6 mmol.L (22-28) H 12/04/17 15:53 VBG O2 Sat (Calc) 79.5 % (40-65) H 12/04/17 15:53 VBG Base Excess 2.2 mmol/L (0.0-2.0) H 12/04/17 15:53 VBG Potassium 2.8 mmol/L (3.6-5.2) L 12/04/17 15:53 Sodium 135.0 mmol/L (132-148) 12/04/17 15:53 Chloride 102.0 mmol/L (98-107) 12/04/17 15:53 Glucose 158 mg/dl (65-105) H 12/04/17 15:53 Lactate 1.4 mmol/L (0.7-2.1) 12/04/17 15:53 FiO2 21.0 % 12/04/17 15:53 Sodium 138 mmol/L (132-148) 12/08/17 06:30 Potassium 4.3 mmol/L (3.6-5.0) 12/08/17 06:30 Chloride 105 mmol/L (98-107) 12/08/17 06:30 Carbon Dioxide 29 mmol/L (21-33) 12/08/17 06:30 Anion Gap 8 (10-20) L 12/08/17 06:30 BUN 19 mg/dL (7-21) 12/08/17 06:30 Creatinine 1.1 mg/dl (0.7-1.2) 12/08/17 06:30 Est GFR ( Amer) 60 12/08/17 06:30 Est GFR (Non-Af Amer) 49 12/08/17 06:30 Random Glucose 107 mg/dL (70-110) 12/08/17 06:30 Hemoglobin A1c 6.2 % (4.2-6.5) 12/05/17 10:00 Lactic Acid 1.1 mmol/L (0.7-2.1) 12/04/17 15:53 Calcium 8.9 mg/dL (8.4-10.5) 12/08/17 06:30 Total Bilirubin 0.6 mg/dL (0.2-1.3) 12/06/17 04:07 AST 27 U/L (14-36) 12/06/17 04:07 ALT 35 U/L (7-56) 12/06/17 04:07 Alkaline Phosphatase 55 U/L (38-126) 12/06/17 04:07 Troponin I 0.02 ng/mL D 12/06/17 04:07 NT-Pro-B Natriuret Pep 3100 pg/mL (0-450) H 12/04/17 11:31 Total Protein 6.3 g/dL (5.8-8.3) 12/06/17 04:07 Albumin 3.1 g/dL (3.0-4.8) 12/06/17 04:07 Globulin 3.2 gm/dL 12/06/17 04:07 Albumin/Globulin Ratio 1.0 (1.1-1.8) L 12/06/17 04:07 Procalcitonin 0.37 NG/ML (0.19-0.49) 12/04/17 17:25 TSH 3rd Generation 1.10 mIU/mL (0.46-4.68) 12/04/17 15:00 Venous Blood Potassium 2.8 mmol/L (3.6-5.2) L 12/04/17 15:53 Urine Color Yellow (YELLOW) 12/06/17 01:09 Urine Appearance Clear (CLEAR) 12/06/17 01:09 Urine pH 5.5 (4.7-8.0) 12/06/17 01:09 Ur Specific [place] <= 1.005 (1.005-1.035) 12/06/17 01:09 Urine Protein Negative mg/dL (<30 mg/dL) 12/06/17 01:09 Urine Glucose (UA) Negative mg/dL (NEGATIVE) 12/06/17 01:09 Urine Ketones Negative mg/dL (NEGATIVE) 12/06/17 01:09 Urine Blood Negative (NEGATIVE) 12/06/17 01:09 Urine Nitrate Negative (NEGATIVE) 12/06/17 01:09 Urine Bilirubin Negative (NEGATIVE) 12/06/17 01:09 Urine Urobilinogen 0.2 E.U./dL (<1 E.U./dL) 12/06/17 01:09 Ur Leukocyte Esterase Trace Bhavna/uL (NEGATIVE) H 12/06/17 01:09 Urine RBC 0 - 2 /hpf (0-2) 12/06/17 01:09 Urine WBC 1 - 3 /hpf (0-6) 12/06/17 01:09 Ur Epithelial Cells 3 - 4 /hpf (0-5) 12/06/17 01:09 Urine Bacteria Mod (NEG) 12/06/17 01:09 Influenza Typ A,B (EIA) Negative for flu a/b (NEGATIVE) 12/04/17 12:35 Ur L.pneumophila Ag Negative (NEGATIVE) 12/06/17 01:09 Pneumocystis Source Serum 12/04/17 17:25 S. pneumoniae Antigen Not detected 12/04/17 17:25 - Hospital Course Hospital Course: Upon Admission Patient is a 66 year old female with PMH of COPD, HTN, spinal stenosis, herniated disks s/p MILD procedure, bursitis in hips presents to hospital for evaluation of cough. Patient reports cough for past 3 weeks after a MILD procedure performed at [place]. Patient reports that cough is constant in nature and is associated with clear productive phlegm at times. Patient reports decreased appetite, dizziness when rising, and overall weakness. Patient reports no fevers or chills during this period. Patient has not seen PMD in over a year. Patient denies sick contacts. Patient denies chest pain, sob, n/v, constipation or diarrhea, dysuria, and headaches. Patient's ambulation is limited due to her chronic back condition. Hospital Course 66 year old female admitted for further evaluation of cough for 3 weeks. Chest x-ray revealed consolidation around the left hilum measuring 7.6 cm most likely due to pneumonia. IV azithromycin and ceftriaxone were started in the ED. EKG revealed atrial fibrillation with rapid ventricular response for which heparin was initiated. Chest CT showed consolidation around left hilum. ID and Cardio were consulted. Antibiotics were switched to cefepime, azithromycin and zyvox as per ID recommendation. Cardio discontinued the heparin drip and switched to Xarelto 15 mg due to patient's homa-vasc score of 3 and lopressor 50mg was also added due to increase in heart rate. Echo ordered revealed mild concentric ventricular hypertrophy, arotic valve is mildly calcified, trace to mild tricuspid regurgitation, LVEF: 68%. Cardio adjusted the medication to metoprolol ER 50 mg qd and Xarelto 15 mg qd as outpatient dose. They also recommended nuclear stress test to be arranged outpatient. Pulmonology was consulted for lung consolidation for which they recommended a repeat CT scan outpatient. On hospital day 4, s. pneumonia antigen, legionella antigen, mrsa and blood culture were all negative and ID recommended patient to be discharged with oral antibiotics. Patient discharged with Vantin and Azithromax for next 3 days. Discharge Plan Patient is stable for discharge to home as per Dr. Palma. She was counseled to return to the emergency department if symptoms return or worsen. Patient is to follow up with primary medical doctor, Dr. Fatima, within 3-5 days of discharge. Patient is to follow up with deck mechanic, Dr. Lucia within 5-7 days. Patient is to follow-up with Dr. Youngblood for outpatient nuclear stress test. She is to finish antibiotics Vantin and Zithromax for next 3 days. Patient is to resume home medications as prescribed and instructed in discharge instructions. Reviewed all medications with patient, and she understands instructions. Patient understands and agrees with discharge plan. Disclaimer: Written above is a synopsis of patient's current hospital admission. For full report please refer to EMR. Discharge Exam - Head Exam Head Exam: ATRAUMATIC, NORMAL INSPECTION, NORMOCEPHALIC - Eye Exam Eye Exam: EOMI, Normal appearance. absent: Nystagmus, Scleral icterus - ENT Exam ENT Exam: Mucous Membranes Moist - Respiratory Exam Respiratory Exam: NORMAL BREATHING PATTERN. absent: Rhonchi, Wheezes, Respiratory Distress - Cardiovascular Exam Cardiovascular Exam: REGULAR RHYTHM, +S1, +S2. absent: Bradycardia, Tachycardia - GI/Abdominal Exam GI & Abdominal Exam: Normal Bowel Sounds, Soft. absent: Distended, Firm, Guarding, Hernia, Tenderness - Neurological Exam Neurological exam: Alert, Oriented x3 - Skin Skin Exam: Intact, Normal Color Discharge Plan - Discharge Medications Prescriptions: Azithromycin [Zithromax] 500 mg PO DAILY #3 tab Cefpodoxime [Vantin] 200 mg PO DAILY #6 tab Metoprolol Succinate XL [Toprol XL] 50 mg PO BRK #14 tab Rivaroxaban [Xarelto] 15 mg PO DAILY #14 tab - Follow Up Plan Condition: STABLE Disposition: HOME/ ROUTINE Instructions: Pneumonia in Adults, Heart Healthy Diet Additional Instructions: 1. Patient is stable for discharge to home as per Dr. Palma 2. Patient is to followup with PMD, Dr. Fatima, within 3-5 days of discharge from hospital. Patient is to followup with warehouse inventory clerk, Dr. Youngblood, within 3-5 days of discharge from hospital. 3. Patient will be discharged with the following home medications: Metoprolol 50 mg take once daily with breakfast, Xarelto 15mg take once daily for next 2 weeks (follow up with [facility] for further management). Patient will also be discharged with the following antibiotics: Azithromycin 500mg once by mouth daily for next 3 days, Vantin 200mg by mouth twice a day for next 3 days. Patient will no longer take her home home blood pressure Hyaar. Patient will continue to take all of her other home medications including oxycodone, gabapentin, meloxicam, advair diskus, and spiriva. 4. Patient is instructed to return to hospital if symptoms recur or worsen. 5. Patient understands the plan as above an agrees. Referrals: Heron Youngblood MD [Staff Provider] - Eleuterio Fatima MD [Family Provider] - <Cyn Palma - Last Filed: 12/08/17 17:44> Provider - Provider Date of Admission: 12/04/17 13:52 Attending physician: Cyn Palma MD Hospital Course - Lab Results Lab Results: Micro Results 12/04/17 15:50 Blood-Venous Blood Culture - Preliminary NO GROWTH AFTER 4 DAYS 12/04/17 15:30 Blood-Venous Blood Culture - Preliminary NO GROWTH AFTER 4 DAYS 12/06/17 10:00 Naris MRSA Culture (Admit) - Final MRSA NOT DETECTED Most Recent Lab Values WBC 9.2 10^3/ul (4.5-11.0) 12/08/17 06:30 RBC 3.12 10^6/uL (3.5-6.1) L 12/08/17 06:30 Hgb 9.3 g/dL (12.0-16.0) L 12/08/17 06:30 Hct 28.3 % (36.0-48.0) L 12/08/17 06:30 MCV 90.7 fl (80.0-105.0) 12/08/17 06:30 MCH 29.8 pg (25.0-35.0) 12/08/17 06:30 MCHC 32.9 g/dl (31.0-37.0) 12/08/17 06:30 RDW 13.0 % (11.5-14.5) 12/08/17 06:30 Plt Count 292 10^3/uL (120.0-450.0) 12/08/17 06:30 MPV 9.2 fl (7.0-11.0) 12/08/17 06:30 Gran % 64.9 % (50.0-68.0) 12/08/17 06:30 Lymph % (Auto) 26.9 % (22.0-35.0) 12/08/17 06:30 [place] % (Auto) 6.4 % (1.0-6.0) H 12/08/17 06:30 Eos % (Auto) 1.7 % (1.5-5.0) 12/08/17 06:30 Baso % (Auto) 0.1 % (0.0-3.0) 12/08/17 06:30 Gran # 5.95 (1.4-6.5) 12/08/17 06:30 Lymph # (Auto) 2.5 (1.2-3.4) 12/08/17 06:30 [place] # (Auto) 0.6 (0.1-0.6) 12/08/17 06:30 Eos # (Auto) 0.2 (0.0-0.7) 12/08/17 06:30 Baso # (Auto) 0.01 K/mm3 (0.0-2.0) 12/08/17 06:30 PT 14.6 SECONDS (9.4-12.5) H 12/04/17 14:43 INR 1.27 12/04/17 14:43 APTT 24.9 Seconds (25.1-36.5) L 12/06/17 04:07 pO2 43 mm/Hg (30-55) 12/04/17 15:53 VBG pH 7.41 (7.32-7.43) 12/04/17 15:53 VBG pCO2 43.0 (40-60) 12/04/17 15:53 VBG HCO3 27.3 mmol/l (21-28) 12/04/17 15:53 VBG Total CO2 28.6 mmol.L (22-28) H 12/04/17 15:53 VBG O2 Sat (Calc) 79.5 % (40-65) H 12/04/17 15:53 VBG Base Excess 2.2 mmol/L (0.0-2.0) H 12/04/17 15:53 VBG Potassium 2.8 mmol/L (3.6-5.2) L 12/04/17 15:53 Sodium 135.0 mmol/L (132-148) 12/04/17 15:53 Chloride 102.0 mmol/L (98-107) 12/04/17 15:53 Glucose 158 mg/dl (65-105) H 12/04/17 15:53 Lactate 1.4 mmol/L (0.7-2.1) 12/04/17 15:53 FiO2 21.0 % 12/04/17 15:53 Sodium 138 mmol/L (132-148) 12/08/17 06:30 Potassium 4.3 mmol/L (3.6-5.0) 12/08/17 06:30 Chloride 105 mmol/L (98-107) 12/08/17 06:30 Carbon Dioxide 29 mmol/L (21-33) 12/08/17 06:30 Anion Gap 8 (10-20) L 12/08/17 06:30 BUN 19 mg/dL (7-21) 12/08/17 06:30 Creatinine 1.1 mg/dl (0.7-1.2) 12/08/17 06:30 Est GFR ( Amer) 60 12/08/17 06:30 Est GFR (Non-Af Amer) 49 12/08/17 06:30 Random Glucose 107 mg/dL (70-110) 12/08/17 06:30 Hemoglobin A1c 6.2 % (4.2-6.5) 12/05/17 10:00 Lactic Acid 1.1 mmol/L (0.7-2.1) 12/04/17 15:53 Calcium 8.9 mg/dL (8.4-10.5) 12/08/17 06:30 Total Bilirubin 0.6 mg/dL (0.2-1.3) 12/06/17 04:07 AST 27 U/L (14-36) 12/06/17 04:07 ALT 35 U/L (7-56) 12/06/17 04:07 Alkaline Phosphatase 55 U/L (38-126) 12/06/17 04:07 Troponin I 0.02 ng/mL D 12/06/17 04:07 NT-Pro-B Natriuret Pep 3100 pg/mL (0-450) H 12/04/17 11:31 Total Protein 6.3 g/dL (5.8-8.3) 12/06/17 04:07 Albumin 3.1 g/dL (3.0-4.8) 12/06/17 04:07 Globulin 3.2 gm/dL 12/06/17 04:07 Albumin/Globulin Ratio 1.0 (1.1-1.8) L 12/06/17 04:07 Procalcitonin 0.37 NG/ML (0.19-0.49) 12/04/17 17:25 TSH 3rd Generation 1.10 mIU/mL (0.46-4.68) 12/04/17 15:00 Venous Blood Potassium 2.8 mmol/L (3.6-5.2) L 12/04/17 15:53 Urine Color Yellow (YELLOW) 10/09/18 01:09 Urine Appearance Clear (CLEAR) 12/06/17 01:09 Urine pH 5.5 (4.7-8.0) 12/06/17 01:09 Ur Specific [place] <= 1.005 (1.005-1.035) 12/06/17 01:09 Urine Protein Negative mg/dL (<30 mg/dL) 12/06/17 01:09 Urine Glucose (UA) Negative mg/dL (NEGATIVE) 12/06/17 01:09 Urine Ketones Negative mg/dL (NEGATIVE) 12/06/17 01:09 Urine Blood Negative (NEGATIVE) 12/06/17 01:09 Urine Nitrate Negative (NEGATIVE) 12/06/17 01:09 Urine Bilirubin Negative (NEGATIVE) 12/06/17 01:09 Urine Urobilinogen 0.2 E.U./dL (<1 E.U./dL) 12/06/17 01:09 Ur Leukocyte Esterase Trace Bhavna/uL (NEGATIVE) H 12/06/17 01:09 Urine RBC 0 - 2 /hpf (0-2) 12/06/17 01:09 Urine WBC 1 - 3 /hpf (0-6) 12/06/17 01:09 Ur Epithelial Cells 3 - 4 /hpf (0-5) 12/06/17 01:09 Urine Bacteria Mod (NEG) 12/06/17 01:09 Influenza Typ A,B (EIA) Negative for flu a/b (NEGATIVE) 12/04/17 12:35 Ur L.pneumophila Ag Negative (NEGATIVE) 12/06/17 01:09 Pneumocystis Source Serum 12/04/17 17:25 S. pneumoniae Antigen Not detected 12/04/17 17:25 Attending/Attestation - Attestation I have personally seen and examined this patient.: Yes I have fully participated in the care of the patient.: Yes I have reviewed all pertinent clinical information, including history, physical exam and plan: Yes Notes (Text): 12/08/17 17:41 66 year old female with past medical history of COPD, hypertension, and spinal stenosis who presented with cough and shortness of breath. She was started on iv antibiotics for pneumonia. She was seen by pulmonary who recommended repeating CT chest for follow up as outpatient. She was also seen by cardiology for afib with rvr. Patient was on lopressor and xarelto. She initially had leukocytosis and MARLON which have resolved. Patient will be discharged home today to follow up with pmd. Follow up with cardiology for outpatient stress test. Follow up with pulmonary to repeat CT chest as outpatient. Continue with po antibiotics as prescribed. Family is at bedside and questions were answered. Cyn Palma MD Hospitalist.
[2017-12-08] MEDS ORDERED: Pneumococcal 23-Valent Vaccine IM ONE (14:46)
[2017-12-08] MEDS ORDERED: Influenza Vaccine 60 mcg/0.5 mL SYR (4YR UP) IM ONE (14:48)
== END 2017-12-08 17:41 | disposition home or self-care (01) | DRG 871 ==
LOC: ED 10:43 → ERH 13:52 → 2RSO 18:54
PROVIDERS: ADMIT Internal Medicine; ATTEND Internal Medicine
DX: A41.9 Sepsis, unspecified organism (principal); J18.9 Pneumonia, unspecified organism; J44.0 Chronic obstructive pulmonary disease with (acute) lower respiratory infection; Z68.41 Body mass index [BMI] 40.0-44.9, adult; N17.9 Acute kidney failure, unspecified; J20.9 Acute bronchitis, unspecified; M48.00 Spinal stenosis, site unspecified; E87.6 Hypokalemia; E66.01 Morbid (severe) obesity due to excess calories; D64.9 Anemia, unspecified; M70.71 Other bursitis of hip, right hip; M70.72 Other bursitis of hip, left hip; I48.0 Paroxysmal atrial fibrillation; G89.29 Other chronic pain; Z23 Encounter for immunization; Z87.891 Personal history of nicotine dependence